=== PATIENT | male | born 1935 | race Caucasian/White ===

== ENCOUNTER 2019-10-06 12:15 | Outpatient (CLI) | payer BC, SELFPAY | END 2019-10-06 12:16 | disposition home or self-care (01) | LOC: CHSIMG 12:20 | PROVIDERS: PCP Family Medicine; Visit Provider Specialist | DX: I49.9 Cardiac arrhythmia, unspecified (principal); G45.9 Transient cerebral ischemic attack, unspecified | CPT/HCPCS: 93270; 93306; 96374; 96375 ==

== ENCOUNTER 2023-12-24 11:17 | Inpatient (IN) | payer MEDICARE, OTHER, SELFPAY ==
[2023-12-24] VITALS (19 sets, daily range): BP systolic 145–173; BP diastolic 60–93; PULSE 66–83; RESP 13–26; TEMP 36–36.7; O2SAT 94–100; BMI 29.3
--- NOTE | ~2023-12-24 | XR_ITS ---
XR chest 2V 12/24/2023 12:16 Indication: Redness of breath with exertion Procedure: 2 view chest Comparison: No prior studies for comparison. Findings: There are large right and small left pleural effusions. Bibasilar airspace disease may repr esent compressive atelectasis or pneumonia. No pneumothorax. No edema. Probable cardiomegaly. Impression: 1: Large right and small left pleural effusions. 2: Bibasilar airspace disease, most likely compressive atelectasis. Pneumonia less favored. Reviewed, dictated and finalized at location B. Impression: 1: Large right and small left pleural effusions. 2: Bibasilar airspace disease, most likely compressive atelectasis. Pneumonia l ess favored.
--- NOTE | ~2023-12-24 | XR_ITS ---
[id number] 12/26/2023 11:50 Indication: Postthoracentesis Procedure: AP portable chest Comparison: 12/24/2023 Findings: There are bilateral pleural effusions, right greater than left. No pneumothorax identified post procedure. Bibasilar airspace disease may represent atelectasis or pneumonia. Cardiomegaly. No a cute osseous abnormality. Impression: 1: Bibasilar airspace disease, atelectasis versus pneumonia. 2: Bilateral pleural effusions, right greater than left. No pneumothorax identified. Reviewed, dictated and finalized at location B. Impression: 1: Bibasilar airspace disease, atelectasis versus pneumonia. 2: Bilateral pleural effusions, right greater than left. No pneumothorax ident ified.
--- NOTE | ~2023-12-24 | CT_ITS ---
EXAMINATION: CT diagnostic chest wo con DATE: 12/24/2023 13:14 INDICATION: Pleural effusions. TECHNIQUE: Computed tomography (CT) of the chest was performed without intravenous contrast. The dose -length product was 435.94 mGy-cm. Automated exposure control and iterative reconstruction technique were employed. COMPARISON: None FINDINGS: Large right and small left pleural effusions. There is atherosclerosis of the aorta. There is atherosclerosis and coronary arteries. Cardiomegaly. Bibasilar dependent atelectasis. Status post cholecystectomy with pneumobilia consistent with sphincterotomy. There is a T12 burst fracture, likel y chronic. There is severe thoracic and lumbar spondylosis. There are mild wedge compression deformit ies of the lower thoracic spine, likely chronic. IMPRESSION: 1. Bilateral pleural effusions, right greater than left with underlying compressive atelectasis. 2: Cardiomegaly. Reviewed, dictated and finalized at location B. IMPRESSION: 1. Bilateral pleural effusions, right greater than left with underlying david sive atelectasis. 2: Cardiomegaly.
--- NOTE | ~2023-12-24 | US_ITS ---
EXAMINATION: US thoracentesis DATE: 12/26/2023 11:54 INDICATION: pleural effusion TECHNIQUE: The procedure and its risks, benefits, and alternatives were discussed with the patient. P otential risks discussed included bleeding, infection, and pneumothorax. The patient understood the r isks and agreed to proceed. The skin was prepped and draped in sterile fashion. 1% lidocaine was used for local anesthesia. Under ultrasound guidance, a 5 Fr catheter with trochar was advanced into the right pleural effusion. Fluid was aspirated. The catheter was removed, and a dressing was applied. Th ere were no immediate complications. FINDINGS: Ultrasound images demonstrate a right pleural effusion and the catheter within the fluid. IMPRESSION: 1. Successful ultrasound-guided thoracentesis yielding 1000 mL of clear, yellow fluid. Reviewed, dictated and finalized at location A. IMPRESSION: 1. Successful ultrasound-guided thoracentesis yielding 1000 mL of clear, yello w fluid.
--- NOTE | 2023-12-24 11:44 | ECG_ITS ---
SEE SCANNED COPY FOR CONFIRMED REPORT MTDD
[2023-12-24 11:59] LABS: Basophils Percent Auto 0.3 % (0.2-1.2); Eosinophils Absolute Auto 0.1 K/mm3 (0-0.3); Eosinophils Percent Auto 1.5 % (0-4.4); Hematocrit 42.4 % (42.0-52.0); Hemoglobin 14.3 g/dL (14.0-18.0); Immature Granulocyte Absolute 0.01 K/mm3 (0.00-0.031); Immature Granulocyte Percent A 0.2 % (0-0.5); Lymphocytes Absolute Auto 0.55 K/mm3 (0.9-3.2); Lymphocytes Percent Auto 8.9 % (18.3-44.2); Mean Corpuscular HGB Conc 33.7 g/dl (32-36); Mean Corpuscular Hemoglobin 33.6 pg (26-34); Mean Corpuscular Volume 99.5 fl (80-100); Mean Platelet Volume 9.6 fl (7.4-10.4); Monocytes Absolute Auto 0.7 K/mm3 (0.1-0.6); Monocytes Percent Auto 11.1 % (2.6-8.5); Neutrophils Absolute Auto 4.8 K/mm3 (1.3-6.7); Platelet Count Result 152 k/mm3 (150-375); Red Blood Count 4.26 M/mm3 (4.6-6.20); Red Cell Distribution Width 13.8 % (11.5-14.5); White Blood Count 6.2 K/mm3 (4.5-10.0)
[2023-12-24 12:15] LABS: Alanine Aminotransferase 39 U/L (6-50); Albumin Level 3.8 g/dL (3.5-5.1); Alkaline Phosphatase 91 U/L (38-126); Anion Gap 6 mmol/L (4-12); Aspartate Amino Transferase 38 U/L (17-59); Blood Urea Nitrogen 70 mg/dL (9-20); Carbon Dioxide 27 mmol/L (22-30); Chloride 103 mmol/L (98-107); Estimated CRCL calculation 16 ml/min; Estimated Glomerular Filt Rate 20; Glucose 101 mg/dL (65-110); Potassium 4.2 mmol/L (3.4-5.0); Sodium 136 mmol/L (137-145)
[2023-12-24 12:16] LABS: INR 2.2; Prothrombin Time 26.4 Seconds (11.1-14.7)
[2023-12-24 12:17] LABS: Partial Thromboplastin Time 40.9 Seconds (22.3-36.8)
[2023-12-24 12:28] LABS: NT Pro B Type Natriuretic Pept 3780 pg/mL (19.9-100); Troponin I 0.068 ng/mL (0.000-0.034)
[2023-12-24 12:37] LABS: Influenza A QL RT-PCR Negative (Negative); Influenza B QL RT-PCR Negative (Negative); RSV RNA, RT-PCR Negative (Negative); SARS-CoV-2 RNA PCR Negative (Negative)
--- NOTE | 2023-12-24 12:47 | ED.SOB ---
HPI - SOB/Dyspnea General Chief Complaint: Shortness of Breath/Dyspnea Stated Complaint: shortnes of breath Time Seen by Provider: 12/24/23 11:57 History of Present Illness HPI Narrative: 88-year-old male present to the emergency department for evaluation of worsening exertional shortness of breath over the course of the last few weeks. Patient does have history of CHF but denies any recent water weight gain. Patient denies any associated chest pain with this. Patient states that he is unable to walk as long distances he used to be able to without worsening shortness of breath. Patient has no prior history of atrial fibrillation per patient or family but patient is on Xarelto. patient denies any prior history of [place]. Related Data Home Medications Medication Instructions Recorded Confirmed amlodipine 5 mg tablet 5 mg PO DAILY 10/16/22 12/24/23 rivaroxaban 20 mg tablet (Xarelto) 20 mg PO DAILY 10/16/22 12/24/23 temazepam 7.5 mg capsule 7.5 mg PO QHS 10/16/22 12/24/23 vitamin E (dl, acetate) 180 mg 180 mg PO DAILY 10/16/22 12/24/23 (400 unit) capsule timolol 0.5 % eye drops 1 drp EACH EYE Q12H 06/12/23 12/24/23 clonidine HCl 0.1 mg tablet 0.2 mg PO BID 10/09/23 12/24/23 ascorbic acid (vitamin C) 500 mg 500 mg PO DAILY 12/24/23 12/24/23 tablet (Vitamin C) calcium 600 mg capsule 600 mg PO DAILY 12/24/23 12/24/23 cholecalciferol (vitamin D3) 125 125 mcg PO DAILY 12/24/23 12/24/23 mcg (5,000 unit) tablet (Vitamin D3) travoprost 0.004 % eye drops 1 drp EACH EYE HS 12/24/23 12/24/23 Allergies Allergy/AdvReac Type Severity Reaction Status Date / Time No Known Allergies Allergy Verified 12/24/23 11:18 Review of Systems Review of Systems: All systems reviewed & are unremarkable except as noted in HPI and below PMFSH Past Medical History Medical History Chronic anticoagulation Chronic kidney disease, stage 4 (severe) Hyperlipidemia Hypertension Paroxysmal atrial fibrillation Patent foramen ovale Transient ischemic attack (2019) Echocardiogram showed evidence of a small patent foramen ovale. Surgical History Surgical History History of cholecystectomy Family History Family History Mother Brain tumor Father Lung cancer Social History Social History (Updated 12/24/23 @ 21:43 by Terri Lobato PA-C) Social History: Healthcare power of contract attorney: Avtar Finn. Code status: Full code. Smoking status: Never smoker Alcohol intake: never Substance use: never Do You Feel Safe in your Home?: Yes Lack of Transportation: YES Lack of Food: Never True Current Housing: I Do Not Have Housing Concerned About Future Housing: No Difficulty Paying Gas/Electric Bills: No Difficulty Paying for Meds: No Currently Unemployed: No Education: Master's Degree or Higher Difficulty w/ Childcare or Family Care: No Additional living arrangements comments: Lives in [place]. 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 Spiritual care concerns: No Exam Narrative: APPEARANCE: Well appearing, no pain, no distress, well-nourished. HEAD: normocephalic, atraumatic. EYES: PERRLA/EOMI, conjunctivae clear. NOSE: Normal no drainage EARS:TMS clear with good light reflex. THROAT: Pharynx clear, no exudate. NECK: Supple. No adenopathy, no masses. RESPIRATORY: Airway patent, respirations nonlabored. Clear to auscultation bilaterally, no rales, rhonchi, wheezing. CARDIOVASCULAR: Regular rate and rhythm without murmurs rubs or gallops. ABDOMINAL: Soft, nontender, nondistended, normal bowel sounds MUSCULOSKELETAL: lower extremity pitting NEURO: Alert. Cranial nerves II through XII intact. grossly intact SKIN: Warm, dry. Normal Color Course Vital Signs Vital signs: Vital Signs
[2023-12-24 13:04] LABS: Magnesium 2.1 mg/dL (1.6-2.3)
[2023-12-24] MEDS: FUROSEMIDE INJ 40 MG/4 ML VIAL IV PUSH ×2 (13:32→20:13)
[2023-12-24 14:13] LABS: Free T4 Free Thyroxine Reflex 1.58 ng/dL (0.78-2.19)
[2023-12-24 14:56] LABS: Total Triiodothyronine (T3) 1.03 NG/ML (0.97-1.69)
--- NOTE | 2023-12-24 15:07 | PM.IMHP ---
H&P: HPI History of Present Illness Date/Time: 12/24/23 16:00 Chief Complaint: Shortness of breath. 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 The patient provides the following history. Over the course of the last 3 weeks he has noticed an increase in his chronic lower extremity edema and progressive dyspnea on lesser and lesser exertion. He is now having mild shortness of breath with conversation. He states compliance with his medications and has not had any change in dosages. He has not noticed any with weight gain. There has been no change in urine output that he can appreciate. He also denies syncope, near syncope, pleuritic pain, chest pain, sensations of racing heart, nausea, vomiting, sweats, orthopnea, paroxysmal nocturnal dyspnea, and calf pain. In the ED: He was afebrile on arrival. Blood pressures have been running between the 140s to 170s systolic. Labs were significant for an INR of 2.2, sodium 136, BUN 70, creatinine 3.00, troponin 0.06 8, proBNP 3780. Chest CT showed bilateral pleural effusions, right greater than left, with underlying compressive atelectasis and cardiomegaly. He was given 40 mg IV furosemide and is being admitted in this setting for further treatment and evaluation. Review of Systems Review of Systems: 12 systems were reviewed and are negative except for as per HPI. [facility] Past Medical History Medical History Chronic anticoagulation Chronic kidney disease, stage 4 (severe) Hyperlipidemia Hypertension Paroxysmal atrial fibrillation Patent foramen ovale Transient ischemic attack (2019) Echocardiogram showed evidence of a small patent foramen ovale. Surgical History Surgical History History of cholecystectomy Family History Family History Mother Brain tumor Father Lung cancer Social History Social History (Updated 12/24/23 @ 21:43 by Terri Lobato PA-C) Social History: Healthcare power of admitted attorneys: Avtar Finn. Code status: Full code. Smoking status: Never smoker Alcohol intake: never Substance use: never Do You Feel Safe in your Home?: Yes Lack of Transportation: YES Lack of Food: Never True Current Housing: I Do Not Have Housing Concerned About Future Housing: No Difficulty Paying Gas/Electric Bills: No Difficulty Paying for Meds: No Currently Unemployed: No Education: Master's Degree or Higher Difficulty w/ Childcare or Family Care: No Additional living arrangements comments: Lives in [place]. 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 Spiritual care concerns: No Meds Home Medications and Allergies Home Medications Medication Instructions Recorded Confirmed Type amlodipine 5 mg tablet 5 mg PO DAILY 10/16/22 12/24/23 History rivaroxaban 20 mg tablet (Xarelto) 20 mg PO DAILY 10/16/22 12/24/23 History temazepam 7.5 mg capsule 7.5 mg PO QHS 10/16/22 12/24/23 History vitamin E (dl, acetate) 180 mg 180 mg PO DAILY 10/16/22 12/24/23 History (400 unit) capsule timolol 0.5 % eye drops 1 drp EACH EYE Q12H 06/12/23 12/24/23 History clonidine HCl 0.1 mg tablet 0.2 mg PO BID 10/09/23 12/24/23 History furosemide 40 mg tablet 40 mg PO QAM #90 tabs 10/09/23 12/24/23 Rx pravastatin 20 mg tablet 20 mg PO DAILY #90 tabs 11/16/23 12/24/23 Rx ascorbic acid (vitamin C) 500 mg 500 mg PO DAILY 12/24/23 12/24/23 History tablet (Vitamin C) calcium 600 mg capsule 600 mg PO DAILY 12/24/23 12/24/23 History cholecalciferol (vitamin D3) 125 125 mcg PO DAILY
[2023-12-24 17:41] LABS: Troponin I 0.064 ng/mL (0.000-0.034)
[2023-12-24 21:01] LABS: Troponin I 0.065 ng/mL (0.000-0.034)
[2023-12-24] MEDS: LATANOPROST 0.005% OP SOLN 2.5 ML BTL 1 DROP EACH EYE (22:07)
[2023-12-24] MEDS: TEMAZEPAM (*CRX) 7.5 MG CAPSULE PO (22:07)
[2023-12-24] MEDS: TIMOLOL MALEATE 0.5% OP SOLN 5 ML BOTTLE 1 DROP EACH EYE (22:07)
[2023-12-25] VITALS (13 sets, daily range): BP systolic 151–165; BP diastolic 65–78; PULSE 60–91; RESP 16–30; TEMP 36.5–36.7; O2SAT 93–96
[2023-12-25 04:27] LABS: Hematocrit 41.9 % (42.0-52.0); Mean Corpuscular HGB Conc 33.4 g/dl (32-36); Mean Corpuscular Hemoglobin 33.4 pg (26-34); Platelet Count Result 153 k/mm3 (150-375); Red Blood Count 4.19 M/mm3 (4.6-6.20); Red Cell Distribution Width 13.5 % (11.5-14.5); White Blood Count 5.1 K/mm3 (4.5-10.0)
[2023-12-25 04:45] LABS: Anion Gap 9 mmol/L (4-12); Blood Urea Nitrogen 67 mg/dL (9-20); Carbon Dioxide 26 mmol/L (22-30); Chloride 104 mmol/L (98-107); Estimated CRCL calculation 16 ml/min; Estimated Glomerular Filt Rate 20; Glucose 102 mg/dL (65-110); Potassium 3.5 mmol/L (3.4-5.0); Sodium 139 mmol/L (137-145)
[2023-12-25] MEDS: CHOLECALCIFEROL 1,000 UNITS TABLET 5000 UNITS PO (08:47)
[2023-12-25] MEDS: ASCORBIC ACID 500 MG TABLET PO (08:48)
[2023-12-25] MEDS: cloNIDine HCL 0.2 MG TABLET PO ×2 (08:50→20:12)
[2023-12-25] MEDS: CALCIUM CARBONATE (OSCAL) 500 MG TABLET PO (08:50)
[2023-12-25] MEDS: PRAVASTATIN SODIUM 20 MG TABLET PO (08:50)
[2023-12-25] MEDS: TIMOLOL MALEATE 0.5% OP SOLN 5 ML BOTTLE 1 DROP EACH EYE (08:51)
[2023-12-25] MEDS: FUROSEMIDE INJ 40 MG/4 ML VIAL IV PUSH ×2 (08:51→17:28)
[2023-12-25] MEDS: amLODIPine BESYLATE 5 MG TABLET PO (08:51)
[2023-12-25] MEDS: PERFLUTREN LIPID MICROSPHERES 1.5 ML VIAL DILUTED TO 10 ML TOTAL VOLUME IV PUSH (09:45)
--- NOTE | 2023-12-25 09:51 | P.PNIM_ITS ---
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 * monitor renal function during diuresis * previous echocardiogram 2019 * echocardiogram pending * EKG AFIB * chest x-ray large right pleural effusion smaller left/cardiomegaly * Optimize Rene inhibitors, beta-blockers, ARNI * Daily weight. * fluid restriction * Optimize blood pressure less than 130/80. * Fall risk assessment. Bilateral pleural effusion * Right larger than the left * Holding Xarelto * Diuresis with IV Lasix * Thoracentesis pending Elevated troponin * NO CP/SOB likely secondary to ischemic demand * serial troponins x3 q.6 hours trending flat * EKG without ischemic changes q.6 hours * cardiology consulted * EKG AFIB controlled rate Acute on chronic renal failure * Stage IV * Avoid nephrotoxic drugs. * Monitor antihypertensive drug therapy. * Avoid NSAIDs. * Routine CMP monitoring GFR. * Monitor electrolytes especially potassium. * Antibiotic doses depending on creatinine clearance. * Pharmacy does medications. HX AFIB: Holding Xarelto for Thoracentesis HX HTN: Resumed home medications/ BP per unit protocol Code status: Full code per patient DVT prophylaxis: Xarelto Stress ulcer prophylaxis: Protonix 40 daily PT/OT notes: Pending Disposition: Patient admitted the with acute on chronic CHF and bilateral pleural effusion will hold patient's Xarelto for scheduled thoracentesis. PT OT pending. Will continue with aggressive IV diuresis home cardiology and Neurology consult for further recommendations. 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 The patient provides the following history. Over the course of the last 3 weeks he has noticed an increase in his chronic lower extremity edema and progressive dyspnea on lesser and lesser exertion. He is now having mild shortness of breath with conversation. He states compliance with his medications and has not had any change in dosages. He has not noticed any with weight gain. There has been no change in urine output that he can appreciate. He also denies syncope, near syn
--- NOTE | 2023-12-25 09:51 | PM.IMPN ---
Progress Note: A&P Assessment and Plan (1) Pleural effusion: Code(s): J90 - Pleural effusion, not elsewhere classified Status: Acute (2) Elevated troponin: Code(s): R79.89 - Other specified abnormal findings of blood chemistry Status: Acute (3) CHF exacerbation: Code(s): I50.9 - Heart failure, unspecified Status: Acute (4) Hyperlipidemia: Code(s): E78.5 - Hyperlipidemia, unspecified Status: Acute (5) Chronic anticoagulation: Code(s): Z79.01 - longterm (current) use of anticoagulants Status: Acute (6) Paroxysmal atrial fibrillation: Code(s): I48.0 - Paroxysmal atrial fibrillation Status: Acute (7) Hypertension: Code(s): I10 - Essential (primary) hypertension Status: Acute (8) Chronic kidney disease, stage 4 (severe): Code(s): N18.4 - Chronic kidney disease, stage 4 (severe) Status: Chronic Plan Acute on chronic diastolic heart failure BNP 3780 POA cardiology consulted IV Lasix b.i.d. monitor renal function during diuresis previous echocardiogram 2019 echocardiogram pending EKG AFIB chest x-ray large right pleural effusion smaller left/cardiomegaly Optimize Rene inhibitors, beta-blockers, ARNI Daily weight. fluid restriction Optimize blood pressure less than 130/80. Fall risk assessment. Bilateral pleural effusion Right larger than the left Holding Xarelto Diuresis with IV Lasix Thoracentesis pending Elevated troponin NO CP/SOB likely secondary to ischemic demand serial troponins x3 q.6 hours trending flat EKG without ischemic changes q.6 hours cardiology consulted EKG AFIB controlled rate Acute on chronic renal failure Stage IV Avoid nephrotoxic drugs. Monitor antihypertensive drug therapy. Avoid NSAIDs. Routine CMP monitoring GFR. Monitor electrolytes especially potassium. Antibiotic doses depending on creatinine clearance. Pharmacy does medications. HX AFIB: Holding Xarelto for Thoracentesis HX HTN: Resumed home medications/ BP per unit protocol Code status: Full code per patient DVT prophylaxis: Xarelto Stress ulcer prophylaxis: Protonix 40 daily PT/OT notes: Pending Disposition: Patient admitted the with acute on chronic CHF and bilateral pleural effusion will hold patient's Xarelto for scheduled thoracentesis. PT OT pending. Will continue with aggressive IV diuresis home cardiology and Neurology consult for further recommendations. 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 The patient provides the following history. Over the course of the last 3 weeks he has noticed an increase in his chronic lower extremity edema and progressive dyspnea on lesser and lesser exertion. He is now having mild shortness of breath with conversation. He states compliance with his medications and has not had any change in dosages. He has not noticed any with weight gain. There has been no change in urine output that he can appreciate. He also denies syncope, near syncope, pleuritic pain, chest pain, sensations of racing heart, nausea, vomiting, sweats, orthopnea, paroxysmal nocturnal dyspnea, and calf pain. In the ED: He was afebrile on arrival. Blood pressures have been running between the 140s to 170s systolic. Labs were significant for an INR of 2.2, sodium 136, BUN 70, creatinine 3.00, troponin 0.06 8, proBNP 3780. Chest CT showed bilateral pleural effusions, right greater than left, with underlying compressive atelectasis and
--- NOTE | 2023-12-25 10:17 | PM.CNNEP ---
Assessment and Plan Assessment and plan (1) Chronic kidney disease, stage 4 (severe): Code(s): N18.4 - Chronic kidney disease, stage 4 (severe) Status: Chronic Assessment and Plan: baseline creatinine runs around 2.8 - 3.3mg/dl for the last year secondary to HTN, vascular disease, and age-related change his GFR has been as low as 12cc/min in the past which prompted referral for dialysis access placement has AVF in place for dialysis if/when needed responsive to IV diuretic therapy as noted by I/Os follow trend of repeat labs and UOP (2) Acute on chronic diastolic heart failure: Code(s): I50.33 - Acute on chronic diastolic (congestive) heart failure Status: Acute Assessment and Plan: as evidence by symptoms/presentation reasonable response to IV diuretics with relative stability in renal function follow I/Os, daily weights, and respiratory status Cardiology following (3) Bilateral pleural effusion: Code(s): J90 - Pleural effusion, not elsewhere classified Status: Acute Assessment and Plan: right larger than the left holding anticoagulation ongoing diuresis plan for thoracentesis (4) Paroxysmal atrial fibrillation: Code(s): I48.0 - Paroxysmal atrial fibrillation Status: Acute Assessment and Plan: rate controlled on anticoagulation - holding currently for thoracentesis procedure (5) Hypertension: Code(s): I10 - Essential (primary) hypertension Status: Chronic Assessment and Plan: reasonable control may improve further with diuresis follow trend of hemodynamics I will continue to follow the patient with you while he remains hospitalized and make further recommendations as deemed necessary. Thank you for allowing me to participate in the care of this patient. History of Present Illness Reason for Consult Consult date: 12/25/23 Reason for consult: chronic renal failure Chief Complaint Chief complaint: Exertional Shortness of Breath/CHF Bilateral Pleur History of Present Illness Narrative: The patient is an 88-year-old male with a past medical history as outlined below who presented to [facility] Emergency Room for complaints of shortness of breath. Over the past 3 weeks, the patient has noticed an increase in his lower extremity edema and progressive shortness of breath on lesser in lesser exertion. It is worsened to the point where now he has mild shortness of breath just with conversation. He reports compliance with his medications including his diuretics and he has not noticed any fluctuations in his weight. To his knowledge, his urine output appears to be stable and he has had no other symptoms with regard to syncope, lightheadedness, chest pain, palpitations, nausea, vomiting, diaphoresis, or diarrhea. Because of the ongoing nature of the symptoms, he presented to the ER for further assessment. Workup and evaluation emergency room demonstrated the patient to be hemodynamically stable and in no acute distress. Routine blood tests were done which demonstrated his known history of chronic kidney disease with an elevated BUN creatinine but no critical electrolyte abnormalities were noted. His INR was therapeutic at 2.2 and his troponins were only slightly elevated. His proBNP was elevated at 37 80. Subsequent imaging studies including a chest CT demonstrated bilateral pleural effusions with the right greater than left with underlying compressive atelectasis and cardiomegaly. It was felt that his symptoms were manifestation of a CHF exacerbation so he was given IV diuretic therapy and subsequently admitted to the hospital for further evaluation and therapy. Since his admission, he has had fairly reasonable urine output in response to IV diuretic therapy. Given the significant size of his pleural effusions, his anticoagulation has been placed on hold an effort to try and schedule a thoracent
--- NOTE | 2023-12-25 11:02 | PM.CNCAR ---
Assessment and Plan Assessment and plan (1) Paroxysmal atrial fibrillation: Code(s): I48.0 - Paroxysmal atrial fibrillation Status: Acute (2) Pleural effusion: Code(s): J90 - Pleural effusion, not elsewhere classified Status: Acute (3) Elevated troponin: Code(s): R79.89 - Other specified abnormal findings of blood chemistry Status: Acute Plan This is an 88-year-old man who has a history of a patent foramen ovale and paroxysmal atrial fib which at this time appears to be persistent and admits to the hospital with shortness of breath he has a large right pleural effusion and a small to moderate-sized left pleural effusion. It seems that this is likely impairing his mechanics of breathing and resulting in his chief complaint. He has modestly elevated troponin levels which are consistent with his chronic renal failure/not indicative of acute coronary syndrome. At this time he does not need any medication for rate control as his heart rate is in the 70-80 indicating an element of senile AV node dysfunction is also present. I expect that his right pleural effusion is going to have to be tapped for treatment of his dyspnea. His Xarelto should be stopped in anticipation of that. I will review his echocardiogram after it is done and will need to determine if he is a candidate for attempting to restore sinus rhythm at some point or more likely just accepting chronic atrial fibrillation since he is otherwise asymptomatic and unaware of this arrhythmia. Will follow with you while he is in the hospital Connor Starkey MD [facility] History of Present Illness History of Present Illness Consult date/time: 12/25/23 11:02 Reason For Visit: Exertional Shortness of Breath/CHF Bilateral Pleur Narrative: This is a 88-year-old man I am seeing at the request of the hospitalist today apparently because of shortness of breath, pleural effusions and atrial fibrillation as well as elevated troponin levels. Patient is unknown to me prior to this consultation he states that he has been followed for a number of years by a audio experience expert up in the [place] area because he has a patent foramen ovale. This was apparently identified when he was about 79 years old when he had a TIA. Because of this he has been anticoagulated with Xarelto. He came to this hospital emergency room yesterday reporting symptoms of increasing shortness of breath and some lower extremity edema that became more problematic over the last 2-3 weeks. He is not having any symptoms of chest pain pressure or heaviness he was evaluated in the emergency room and was found to have atrial fibrillation with a controlled ventricular response and significant bilateral pleural effusions with more pleural fluid on the right side than on the left. He is known to have chronic kidney disease and follows with Dr. Sands regarding that. For reasons that are not detailed in the chart troponin levels were sampled in the emergency room they are slightly elevated out of normal range but they are all flat there is no pattern that indicates an acute coronary event. His electrocardiogram shows atrial fibrillation with a controlled ventricular response. The patient states that he has no knowledge of her history of atrial fibrillation in the past however there is a event monitor report from about 5 years ago that demonstrates paroxysmal atrial fibrillation apparently from his previous audio experience expert. 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 He tells me in the course of this interview today that his previous audio experience expert up in [place] has retired he was informed of this by his office recently. His laboratory data demonstrates a BUN of 70 and a creatinine of 3 with a EGFR of 20. Review of Systems Constitutional: Constitutional: Reports lethargy Eyes: Eyes: Reports no additional eye complaints ENT: Reports system reviewed
--- NOTE | 2023-12-25 15:17 | ECHO_ITS ---
Patient Info Name: Roger Jacome Age: 88 years : 1935 Gender: Male Ht: 70 in Wt: 190 lbs BSA: 2.08 m2 HR: 64 bpm BP: 160 / 65 mmHg Heart Rhythm: Atrial Fibrillation Technical Quality: Good Exam Date: 12/25/2023 9:49 AM Exam Location: Echo Lab Patient Status: Inpatient Admit Date: 12/25/2023 Staff Ordering Physician: Terri Lobato PA-C Processing Lead: Cheyenne Nelson RDCS Attending Provider: Herrera Adam MD Referring Physician: Luis Alfredo MCCRAY; Exam Type: CA echo dop color flow w con Study Info Indications - CHF, a fib, htn Complete two-dimensional, color flow and Doppler transthoracic echocardiogram is performed with contrast to opacify the left ventricle and to improve the deliniation of the left ventricle endocardial borders. Summary 1. Mild left ventricular enlargement with mild global systolic dysfunction. 2. Moderate biatrial dilation. 3. Sclerotic but not significantly stenotic aortic valve. 4. Moderate mitral and tricuspid regurgitation. 5. Mild aortic and pulmonic regurgitation. 6. Atrial fibrillation. 7. TR velocities indicate at least moderate pulmonary hypertension. Left Ventricle Left ventricular chamber dimension is mildly enlarged. Left ventricular systolic function is mildly reduced, estimated at 45-50%. The left ventricular diastolic function is indeterminate. Right Ventricle Right ventricular chamber dimension is normal. Left Atria Left atrial chamber dimension is moderately enlarged. Right Atria Right atrial chamber dimension is moderately enlarged. Aortic Valve The aortic valve is trileaflet. There is moderate aortic valve sclerosis. There is mild aortic valve stenosis with a peak velocity of 138.37 cm/s, mean gradient of 4 mmHg, and aortic valve area of 2.46 cm2. There is trace aortic valve regurgitation. Pulmonic Valve The pulmonic valve is normal. There is mild pulmonic regurgitation. Mitral Valve The mitral valve has normal leaflets. There is mild to moderate mitral valve regurgitation. The mitral valve annulus is mildly calcified. Tricuspid Valve The tricuspid valve leaflets are normal. There is moderate tricuspid valve regurgitation. Moderate pulmonary hypertension, estimated pulmonary arterial systolic pressure is 58 mmHg. Pericardium/Pleural The pericardium appears normal. Aorta The aortic root size at the sinus of Valsalva is normal. Left Ventricular Outflow Tract Name Value Normal LVOT 2D LVOT Diameter 2.10 cm LVOT Doppler LVOT Peak Gradient 5 mmHg LVOT Mean Gradient 3 mmHg LVOT VTI 20.15 cm LVOT VTI/AV VTI Ratio 0.71 LVOT Stroke Volume 69.70 ml LVOT CO 4.65 l/min LVOT CI 2.24 L/min/m2 Pulmonic Valve Name Value Normal RVOT Doppler RVOT Peak Gradient 1 mm
[2023-12-25] MEDS: VITAMIN E 400 UNIT CAPSULE PO (16:59)
[2023-12-25] MEDS: LATANOPROST 0.005% OP SOLN 2.5 ML BTL 1 DROP EACH EYE (20:08)
[2023-12-25] MEDS: TEMAZEPAM (*CRX) 7.5 MG CAPSULE PO (20:13)
[2023-12-26] VITALS (16 sets, daily range): BP systolic 124–159; BP diastolic 54–74; PULSE 55–83; RESP 16–24; TEMP 36.1–36.7; O2SAT 94–98
[2023-12-26 04:16] LABS: Hematocrit 39.4 % (42.0-52.0); Hemoglobin 13.4 g/dL (14.0-18.0); Mean Corpuscular Hemoglobin 33.7 pg (26-34); Platelet Count Result 135 k/mm3 (150-375); Red Blood Count 3.98 M/mm3 (4.6-6.20); Red Cell Distribution Width 13.5 % (11.5-14.5); White Blood Count 5.7 K/mm3 (4.5-10.0)
[2023-12-26 04:26] LABS: INR 1.3; Prothrombin Time 17.1 Seconds (11.1-14.7)
[2023-12-26 04:30] LABS: Alanine Aminotransferase 27 U/L (6-50); Albumin Level 3.1 g/dL (3.5-5.1); Alkaline Phosphatase 83 U/L (38-126); Anion Gap 7 mmol/L (4-12); Aspartate Amino Transferase 24 U/L (17-59); Bilirubin,Total 2.1 mg/dL (0.2-1.3); Blood Urea Nitrogen 62 mg/dL (9-20); Calcium 8.7 mg/dL (8.4-10.2); Carbon Dioxide 28 mmol/L (22-30); Chloride 102 mmol/L (98-107); Estimated CRCL calculation 15 ml/min; Estimated Glomerular Filt Rate 18; Glucose 114 mg/dL (65-110); Potassium 3.3 mmol/L (3.4-5.0); Sodium 137 mmol/L (137-145)
--- NOTE | 2023-12-26 08:47 | P.PNIM_ITS ---
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 * monitor renal function during diuresis * previous echocardiogram 2019 * echocardiogram: systolic dysfunction with mild biatrial dilation, LVEF 45-50%, moderate MR, moderate TR, and mild AR and ID. * EKG AFIB * chest x-ray large right pleural effusion smaller left/cardiomegaly * Optimize Rene inhibitors, beta-blockers, ARNI * Daily weight. * fluid restriction * Optimize blood pressure less than 130/80. * Fall risk assessment. Bilateral pleural effusion * Right larger than the left * Holding Xarelto * Diuresis with IV Lasix * Thoracentesis pending Elevated troponin * NO CP/SOB likely secondary to ischemic demand * serial troponins x3 q.6 hours trending flat * EKG without ischemic changes q.6 hours * cardiology consulted * EKG AFIB controlled rate Acute on chronic renal failure * Stage IV * Cr bumped may need to switch Lasix to daily * AVF in place * Avoid nephrotoxic drugs. * Monitor antihypertensive drug therapy. * Avoid NSAIDs. * Routine CMP monitoring GFR. * Monitor electrolytes especially potassium. * Antibiotic doses depending on creatinine clearance. * Pharmacy does medications. HX AFIB: Holding Xarelto for Thoracentesis HX HTN: Resumed home medications/ BP per unit protocol Code status: Full code per patient DVT prophylaxis: Xarelto Stress ulcer prophylaxis: Protonix 40 daily PT/OT notes: Pending Disposition: Patient admitted the with acute on chronic CHF and bilateral pleural effusion will hold patient's Xarelto for scheduled thoracentesis. PT OT pending. Will continue with aggressive IV diuresis consulted cardiology and Neurology consult for further recommendations. 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 The patient provides the following history. Over the course of the last 3 weeks he has noticed an increase in his chronic lower extremity edema and progressive d
--- NOTE | 2023-12-26 08:47 | PM.IMPN ---
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 monitor renal function during diuresis previous echocardiogram 2019 echocardiogram: systolic dysfunction with mild biatrial dilation, LVEF 45-50%, moderate MR, moderate TR, and mild AR and AZ. EKG AFIB chest x-ray large right pleural effusion smaller left/cardiomegaly Optimize Rene inhibitors, beta-blockers, ARNI Daily weight. fluid restriction Optimize blood pressure less than 130/80. Fall risk assessment. Bilateral pleural effusion Right larger than the left Holding Xarelto Diuresis with IV Lasix Thoracentesis pending Elevated troponin NO CP/SOB likely secondary to ischemic demand serial troponins x3 q.6 hours trending flat EKG without ischemic changes q.6 hours cardiology consulted EKG AFIB controlled rate Acute on chronic renal failure Stage IV Cr bumped may need to switch Lasix to daily AVF in place Avoid nephrotoxic drugs. Monitor antihypertensive drug therapy. Avoid NSAIDs. Routine CMP monitoring GFR. Monitor electrolytes especially potassium. Antibiotic doses depending on creatinine clearance. Pharmacy does medications. HX AFIB: Holding Xarelto for Thoracentesis HX HTN: Resumed home medications/ BP per unit protocol Code status: Full code per patient DVT prophylaxis: Xarelto Stress ulcer prophylaxis: Protonix 40 daily PT/OT notes: Pending Disposition: Patient admitted the with acute on chronic CHF and bilateral pleural effusion will hold patient's Xarelto for scheduled thoracentesis. PT OT pending. Will continue with aggressive IV diuresis consulted cardiology and Neurology consult for further recommendations. 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 The patient provides the following history. Over the course of the last 3 weeks he has noticed an increase in his chronic lower extremity edema and progressive dyspnea on lesser and lesser exertion. He is now having mild shortness of breath with conversation. He states compliance with his medications and has not had any change in dosages. He has not noticed any with weight gain. There has been no change in urine output that he can appreciate. He also denies syncope, near syncope, pleuritic pain, chest pain, sensations of racing heart, nausea, vomiting, sweats, orthopnea, paroxysmal nocturnal dyspnea, and calf pain. In the ED: He was afebril
[2023-12-26] MEDS: TIMOLOL MALEATE 0.5% OP SOLN 5 ML BOTTLE 1 DROP EACH EYE (09:30)
[2023-12-26] MEDS: FUROSEMIDE INJ 40 MG/4 ML VIAL IV PUSH (09:30)
[2023-12-26] MEDS: cloNIDine HCL 0.2 MG TABLET PO ×2 (09:31→20:20)
--- NOTE | 2023-12-26 09:40 | PM.PNCARD ---
Progress Note: A&P Assessment and Plan (1) Elevated troponin: Code(s): R79.89 - Other specified abnormal findings of blood chemistry Status: Acute (2) Paroxysmal atrial fibrillation: Code(s): I48.0 - Paroxysmal atrial fibrillation Status: Acute Plan 88-year-old man with what appears to be chronic atrial fibrillation. 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 Systemic anticoagulation with Xarelto should be continued. His troponin levels are not indicative of an ACS as I mentioned in my note. The only current cardiac recommendation is to resume Xarelto after his thoracentesis probably in the next couple of days. Who given the fact that his AFib is asymptomatic with good rate control and is not a new issue I do not anticipate attempting to cardiovert this elderly man. Await results of pleural fluid analysis and will follow with you while he is in the hospital. 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 He feels well this morning and is anticipating thoracentesis later this morning in radiology. Exam Const: General: comfortable and no acute distress Other: Pleasant elderly man no distress of any kind HENMT: Mouth: Yes moist mucous membranes Eyes: Sclera: sclerae normal Neck: Neck: supple Resp: Effort & Inspection: normal respiratory effort Other: Right hemithorax is dull in the lower 1/2 Cardio: Rate: regular rate Rhythm: abnormal rhythm irregularly irregular GI: GI Palp: Yes Soft to palpation Auscultation: normal bowel sounds Skin: General skin exam: normal color Neuro: Other: Alert and oriented x3 Extrem: Other: No peripheral edema Objective Data Vital Signs Vital Signs: Vital Signs - 24 hr 12/25/23 10:00 12/25/23 12:00 12/25/23 14:00 Temperature 36.5 C Pulse Rate 68 91 75 Respiratory Rate 28 H Blood Pressure 153/68 H Pulse Oximetry 93 12/25/23 12:20 12/25/23 16:00 12/25/23 16:00 Temperature 36.6 C Pulse Rate 84 78 86 Respiratory Rate 22 H Blood Pressure 151/78 H Pulse Oximetry 96 12/25/23 20:00 12/25/23 20:00 12/25/23 22:00 Temperature 36.6 C Pulse Rate 77 69 70 Respiratory Rate 16 Blood Pressure 159/69 H Pulse Oximetry 95 12/26/23 00:00 12/26/23 00:00 12/26/23 02:00 Temperature 36.2 C L Pulse Rate 55 L 57 L 67 Respiratory Rate 16 Blood Pressure 150/58 H Pulse Oximetry 95 12/26/23 04:00 12/26/23 04:51 12/26/23 06:00 Temperature 36.4 C Pulse Rate 70 77 73 Respiratory Rate 16 Blood Pressure 150/63 H Pulse Oximetry 97 12/26/23 07:27 Temperature 36.1 C L Pulse Rate 76 Respiratory Rate 24 H Blood Pressure 149/74 H Pulse Oximetry 96 Intake/Output Intake/Output: Intake & Output 12/23/23 12/24/23 12/25/23 12/26/23 23:59 23:59 23:59 23:59 Intake Total 240 1500 200 Output Total 950 3100 1050 Balance -710 1600 -850 Meds/Results Medications: Active Medications Generic Name Dose Route Start Last Admin Trade Name Taz PRN Reason Stop Dose Admin Amlodipine Besylate 5 mg 12/25/23 09:00 12/25/23 08:51 Amlodipine Besylate 5 Mg Tablet PO 5 mg DAILY ANNI Administration Ascorbic Acid 500 mg 12/25/23 09:00 12/25/23 08:48 Ascorbic Acid 500 Mg Tablet PO 500 mg DAILY ANNI Administration Calcium Carbonate 500 mg 12/25/23 09:00 12/25/23 08:50 Calcium Carbonate (Oscal) 500 Mg Tablet PO 01/24/24 08:59 500 mg DAILY ANNI Administration Clonidine HCl 0.2 mg 12/25/23 21:00 12/26/23
--- NOTE | 2023-12-26 13:01 | PM.PNNEP ---
Progress Note: A&P Assessment and Plan (1) Chronic kidney disease, stage 4 (severe): Code(s): N18.4 - Chronic kidney disease, stage 4 (severe) Status: Chronic Assessment and Plan: baseline creatinine runs around 2.8 - 3.3mg/dl for the last year secondary to HTN, vascular disease, and age-related change his GFR has been as low as 12cc/min in the past which prompted referral for dialysis access placement has AVF in place for dialysis if/when needed responsive to IV diuretic therapy as noted by I/Os follow trend of repeat labs and UOP (2) Acute on chronic diastolic heart failure: Code(s): I50.33 - Acute on chronic diastolic (congestive) heart failure Status: Acute Assessment and Plan: as evidence by symptoms/presentation reasonable response to IV diuretics with relative stability in renal function follow I/Os, daily weights, and respiratory status Cardiology following (3) Bilateral pleural effusion: Code(s): J90 - Pleural effusion, not elsewhere classified Status: Acute Assessment and Plan: right larger than the left holding anticoagulation ongoing diuresis s/p thoracentesis today (4) Paroxysmal atrial fibrillation: Code(s): I48.0 - Paroxysmal atrial fibrillation Status: Acute Assessment and Plan: rate controlled on anticoagulation - holding currently for thoracentesis procedure (5) Hypertension: Code(s): I10 - Essential (primary) hypertension Status: Chronic Assessment and Plan: reasonable control may improve further with diuresis follow trend of hemodynamics Will continue to follow. Subjective Date/time seen: 12/26/23 13:01 Interval history: Follow-up for chronic kidney disease. Renal function relatively stable with ongoing IV diuresis; s/p ultrasound guided right thoracentesis earlier this afternoon and tolerated this intervention reasonably well; almost 4L negative since admission; still seems to have some dyspnea when seen but no worse than admission. Exam Narrative: General: elderly but WD/WN male in NAD Heart: normal S1 and S2; no rub Lungs: clear anteriorly; decreased at bases R > L Abdomen: soft, nontender, nondistended, positive bowel sounds Extremities: no cyanosis or clubbing; no edema Skin: warm and dry Objective Data Vital Signs Vital Signs: Vital Signs Temp Pulse Resp BP Pulse Ox O2 Del Method 12/26/23 13:00 97.7 F 74 20 124/54 L 98 12/26/23 12:30 78 12/26/23 12:00 97.3 F L 83 20 126/68 97 12/26/23 11:01 Room Air 12/26/23 10:00 74 12/26/23 08:10 75 12/26/23 07:27 97.0 F L 76 24 H 149/74 H 96 12/26/23 06:00 73 12/26/23 04:51 97.6 F 77 16 150/63 H 97 12/26/23 04:00 70 12/26/23 02:00 67 12/26/23 00:00 57 L 12/26/23 00:00 97.1 F L 55 L 16 150/58 H 95 12/25/23 22:00 70 12/25/23 20:00 69 12/25/23 20:00 97.8 F 77 16 159/69 H 95 Intake/Output Intake/Output: Intake & Output 12/23/23 12/24/23 12/25/23 12/26/23 23:59 23:59 23:59 23:59 Intake Total 240 1500 440 Output Total 950 3100 2300 Balance -710 -1600 -1860 Meds/Results Medications: Active Medications Generic Name Dose Route Start Last Admin Trade Name Taz PRN Reason Stop Dose Admin Amlodipine Besylate 5 mg 12/25/23 09:00 12/26/23 14:04 Amlodipine Besylate 5 Mg Tablet PO 5 mg DAILY ANNI Administration Ascorbic Acid 500 mg 12/25/23 09:00 12/26/23 14:04 Ascorbic Acid 500 Mg Tablet PO 500 mg DAILY ANNI Administration Calcium Carbonate 500 mg 12/25/23 09:00 12/26/23 14:05 Calcium Carbonate (Oscal) 500 Mg Tablet PO 01/24/24 08:59 500 mg DAILY ANNI Administration Clonidine HCl 0.2 mg 12/25/23 21:00 12/26/23 09:31 Clonidine Hcl 0.2 Mg Tablet PO 0.2 mg Q12HR ANNI Administration Furosemide 40 mg 12/25/23 17:04 12/26/23 09:30
--- NOTE | 2023-12-26 13:01 | P.PNNP_ITS ---
Progress Note: A&P Assessment and Plan (1) Chronic kidney disease, stage 4 (severe): Code(s): N18.4 - Chronic kidney disease, stage 4 (severe) Status: Chronic Assessment and Plan: * baseline creatinine runs around 2.8 - 3.3mg/dl for the last year * secondary to HTN, vascular disease, and age-related change * his GFR has been as low as 12cc/min in the past which prompted referral for dialysis access placement * has AVF in place for dialysis if/when needed * responsive to IV diuretic therapy as noted by I/Os * follow trend of repeat labs and UOP (2) Acute on chronic diastolic heart failure: Code(s): I50.33 - Acute on chronic diastolic (congestive) heart failure Status: Acute Assessment and Plan: * as evidence by symptoms/presentation * reasonable response to IV diuretics with relative stability in renal function * follow I/Os, daily weights, and respiratory status * Cardiology following (3) Bilateral pleural effusion: Code(s): J90 - Pleural effusion, not elsewhere classified Status: Acute Assessment and Plan: * right larger than the left * holding anticoagulation * ongoing diuresis * s/p thoracentesis today (4) Paroxysmal atrial fibrillation: Code(s): I48.0 - Paroxysmal atrial fibrillation Status: Acute Assessment and Plan: * rate controlled * on anticoagulation - holding currently for thoracentesis procedure (5) Hypertension: Code(s): I10 - Essential (primary) hypertension Status: Chronic Assessment and Plan: * reasonable control * may improve further with diuresis * follow trend of hemodynamics Will continue to follow. Subjective Date/time seen: 12/26/23 13:01 Interval history: Follow-up for chronic kidney disease. Renal function relatively stable with ongoing IV diuresis; s/p ultrasound guided right thoracentesis earlier this afternoon and tolerated this intervention reasonably well; almost 4L negative since admission; still seems to have some dyspnea when seen but no worse than admission. Exam Narrative: General: elderly but WD/WN male in NAD Heart: normal S1 and S2; no rub Lungs: clear anteriorly; decreased at bases R > L Abdomen: soft, nontender, nondistended, positive bowel sounds Extremities: no cyanosis or clubbing; no edema Skin: warm and dry Objective Data Vital Signs Vital Signs: Vital Signs Temp Pulse Resp BP Pulse Ox O2 Del Method 12/26/23 13:00 97.7 F 74 20 124/54 L 98 12/26/23 12:30 78 12/26/23 12:00 97.3 F L 83 20 126/68 97 12/26/23 11:01 Room Air 12/26/23 10:00 74 12/26/23 08:10 75 12/26/23 07:27 97.0 F L 76 24 H 149/74 H 96 12/26/23 06:00 73 12/26/23 04:51 97.6 F 77 16 150/63 H 97 12/26/23 04:00 70 12/26/23 02:00 67 12/26/23 00:00 57 L 12/26/23 00:00 97.1 F L 55 L 16 150/58 H 95 12/25/23 22:00 70 12/25/23 20:00 69 12/25/23 20:00 97.8 F 77 16 159/69 H 95 Intake/Output Intake/Output: Intake & Output 12/23/23 12/24/23 12/25/23 12/26/23 23:59 23:59 23:59 23:59 Intake Total 240 1500 440 Output Total 950 3100 2300 Balance -710
--- NOTE | 2023-12-26 13:28 | PC.NURSE ---
1200- returned to room post procedure- pt npo for 2 hrs bandaid CDI to Right posterior mid back- pt stated breathing better- denies SOB or pain
[2023-12-26] MEDS: CHOLECALCIFEROL 1,000 UNITS TABLET 5000 UNITS PO (14:03)
[2023-12-26] MEDS: amLODIPine BESYLATE 5 MG TABLET PO (14:04)
[2023-12-26] MEDS: PRAVASTATIN SODIUM 20 MG TABLET PO (14:04)
[2023-12-26] MEDS: VITAMIN E 400 UNIT CAPSULE PO (14:04)
[2023-12-26] MEDS: ASCORBIC ACID 500 MG TABLET PO (14:04)
[2023-12-26] MEDS: CALCIUM CARBONATE (OSCAL) 500 MG TABLET PO (14:05)
[2023-12-26] MEDS: POTASSIUM CHLORIDE 20 MEQ ER TABLET 40 MEQ PO (14:05)
[2023-12-26] MEDS: RIVAROXABAN 20 MG TABLET PO (18:30)
[2023-12-26] MEDS: TEMAZEPAM (*CRX) 7.5 MG CAPSULE PO (20:20)
[2023-12-26] MEDS: LATANOPROST 0.005% OP SOLN 2.5 ML BTL 1 DROP EACH EYE (20:20)
[2023-12-27] VITALS (15 sets, daily range): BP systolic 119–156; BP diastolic 55–72; PULSE 60–82; RESP 16–26; TEMP 36.3–36.7; O2SAT 94–99
[2023-12-27 04:13] LABS: Hematocrit 40.7 % (42.0-52.0); Hemoglobin 13.7 g/dL (14.0-18.0); Mean Corpuscular HGB Conc 33.7 g/dl (32-36); Mean Corpuscular Hemoglobin 33.7 pg (26-34); Mean Platelet Volume 10.3 fl (7.4-10.4); Platelet Count Result 132 k/mm3 (150-375); Red Blood Count 4.07 M/mm3 (4.6-6.20); Red Cell Distribution Width 13.6 % (11.5-14.5); White Blood Count 5.8 K/mm3 (4.5-10.0)
[2023-12-27 04:24] LABS: INR 2.9; Prothrombin Time 32.7 Seconds (11.1-14.7)
[2023-12-27 04:25] LABS: Alanine Aminotransferase 25 U/L (6-50); Albumin Level 3.1 g/dL (3.5-5.1); Alkaline Phosphatase 78 U/L (38-126); Anion Gap 5 mmol/L (4-12); Aspartate Amino Transferase 23 U/L (17-59); Bilirubin,Total 2.2 mg/dL (0.2-1.3); Blood Urea Nitrogen 67 mg/dL (9-20); Calcium 8.8 mg/dL (8.4-10.2); Carbon Dioxide 29 mmol/L (22-30); Chloride 104 mmol/L (98-107); Estimated CRCL calculation 13 ml/min; Estimated Glomerular Filt Rate 16; Glucose 104 mg/dL (65-110); Potassium 3.9 mmol/L (3.4-5.0); Sodium 138 mmol/L (137-145)
[2023-12-27] MEDS: VITAMIN E 400 UNIT CAPSULE PO (09:08)
[2023-12-27] MEDS: CHOLECALCIFEROL 1,000 UNITS TABLET 5000 UNITS PO (09:08)
[2023-12-27] MEDS: ASCORBIC ACID 500 MG TABLET PO (09:08)
[2023-12-27] MEDS: cloNIDine HCL 0.2 MG TABLET PO ×2 (09:08→20:17)
[2023-12-27] MEDS: amLODIPine BESYLATE 5 MG TABLET PO (09:09)
[2023-12-27] MEDS: TIMOLOL MALEATE 0.5% OP SOLN 5 ML BOTTLE 1 DROP EACH EYE (09:09)
[2023-12-27] MEDS: CALCIUM CARBONATE (OSCAL) 500 MG TABLET PO (09:09)
[2023-12-27] MEDS: PRAVASTATIN SODIUM 20 MG TABLET PO (09:09)
--- NOTE | 2023-12-27 11:07 | PM.PNCARD ---
Progress Note: A&P Assessment and Plan (1) Elevated troponin: Code(s): R79.89 - Other specified abnormal findings of blood chemistry Status: Acute Assessment and Plan: Mildly elevated and flat, not consistent with ACS. No further workup recommended in this regard. (2) Paroxysmal atrial fibrillation: Code(s): I48.0 - Paroxysmal atrial fibrillation Status: Acute Assessment and Plan: Chronic atrial fibrillation rate controlled without the need for AV aashish agents. He is anticoagulated with Xarelto which has been resumed following thoracentesis yesterday. (3) CHF exacerbation: Qualifiers: Heart failure type: systolic Qualified Code(s): I50.23 - Acute on chronic systolic (congestive) heart failure Code(s): I50.9 - Heart failure, unspecified Status: Acute Assessment and Plan: Has been improving with IV furosemide and is s/p thoracentesis. Today his BUN/SCr is 67/3.6 (62/3.2). Will hold furosemide for today. His lungs sound essentially clear but today he does have lower extremity edema. Will order OTF hose. Continue to monitor I&O, daily weight. Plan 88-year-old man with what appears to be chronic atrial fibrillation. 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 Systemic anticoagulation with Xarelto should be continued. His troponin levels are not indicative of an ACS as I mentioned in my note. The only current cardiac recommendation is to resume Xarelto after his thoracentesis probably in the next couple of days. Who given the fact that his AFib is asymptomatic with good rate control and is not a new issue I do not anticipate attempting to cardiovert this elderly man. Await results of pleural fluid analysis and will follow with you while he is in the hospital. After discharge he does follow with a laboratory machinist elsewhere which presumably will continue Connor Starkey MD [facility] Subjective Date/time seen: 12/27/23 11:07 Interval history: Follow-up visit in this 88-year-old man with: Atrial fibrillation which I suspect has been chronic given significant biatrial dilation on echo and evidence of paroxysmal atrial fib on monitor a number of years ago as mentioned in my previous note. He feels well this morning and is anticipating thoracentesis later this morning in radiology. Date of service 12/27/2023: Feels well today. Breathing has improved following thoracentesis yesterday. No complaints. Eager to go home. Review of Systems Constitutional: Constitutional: Reports lethargy Eyes: Eyes: Reports no additional eye complaints ENT: Reports system reviewed and no additional complaints, except as documented Cardiovascular: Cardiovascular: Reports no additional cardiovascular complaints and Reports dyspnea Respiratory: Respiratory: Reports dyspnea Gastrointestinal: Gastrointestinal: Reports no additional gastrointestinal complaints Musculoskeletal: Musculoskeletal: Reports no additional musculoskeletal complaints Integumentary/Breasts: Skin/Breast: Reports system reviewed and no additional complaints, except as docu Neurologic: Reports system reviewed and no additional complaints, except as documented Endocrine: Endocrine: Reports no additional endocrine complaints Hematologic/Lymphatic: Hematologic/Lymphatic: Reports no additional hematologic/lymphatic complaints Allergic/Immunologic: Allergic/Immunologic: Reports no additional allergic/immunologic complaints Exam Const: General: comfortable and no acute distress Other: Pleasant elderly man no distress of any kind HENMT: Mouth: Yes moist mucous membranes Eyes: Sclera: sclerae normal Neck: Neck: supple Resp: Effort & Inspection: normal respiratory effort Auscultation: clear to auscultation bilaterally and diminished lung sounds Cardio: Rate: regular rate Rhythm: abnormal rhythm irregularly irregular Other: Very soft sy
[2023-12-27] MEDS: FUROSEMIDE INJ 40 MG/4 ML VIAL IV PUSH (11:23)
--- NOTE | 2023-12-27 12:31 | P.PNNP_ITS ---
Progress Note: A&P Assessment and Plan (1) Chronic kidney disease, stage 4 (severe): Code(s): N18.4 - Chronic kidney disease, stage 4 (severe) Status: Chronic Assessment and Plan: * baseline creatinine runs around 2.8 - 3.3mg/dl for the last year * secondary to HTN, vascular disease, and age-related change * his GFR has been as low as 12cc/min in the past which prompted referral for dialysis access placement * has AVF in place for dialysis if/when needed * responsive to IV diuretic therapy as noted by I/Os * follow trend of repeat labs and UOP (2) Acute on chronic diastolic heart failure: Code(s): I50.33 - Acute on chronic diastolic (congestive) heart failure Status: Acute Assessment and Plan: * as evidence by symptoms/presentation * reasonable response to IV diuretics with relative stability in renal function * follow I/Os, daily weights, and respiratory status * Cardiology following (3) Bilateral pleural effusion: Code(s): J90 - Pleural effusion, not elsewhere classified Status: Acute Assessment and Plan: * right larger than the left * ongoing diuresis * s/p thoracentesis on 12/25 (4) Paroxysmal atrial fibrillation: Code(s): I48.0 - Paroxysmal atrial fibrillation Status: Acute Assessment and Plan: * rate controlled * on anticoagulation (5) Hypertension: Code(s): I10 - Essential (primary) hypertension Status: Chronic Assessment and Plan: * reasonable control * may improve further with diuresis * follow trend of hemodynamics Will continue to follow. Subjective Date/time seen: 12/27/23 12:31 Interval history: Follow-up for chronic kidney disease. Reports feeling better overall in comparison to admission; about 3L negative with IV diuresis and is s/p thoracentesis yesterday with 1L removed; creatinine up a bit but not unexpected given interventions/therapy to date; no apparent distress and reports improvement in respiratory status. Exam Narrative: General: elderly but WD/WN male in NAD Heart: normal S1 and S2; no rub Lungs: clear anteriorly; decreased at bases R > L Abdomen: soft, nontender, nondistended, positive bowel sounds Extremities: no cyanosis or clubbing; trace edema Skin: warm and intact Objective Data Vital Signs Vital Signs: Vital Signs Temp Pulse Resp BP Pulse Ox O2 Del Method 05/02/24 12:00 62 12/27/23 11:46 98.0 F 62 16 119/55 L 99 12/27/23 10:00 68 12/27/23 08:00 82 12/27/23 08:23 Room Air 12/27/23 07:59 71 16 140/67 95 12/27/23 05:57 65 12/27/23 04:00 Room Air 12/27/23 04:00 82 12/27/23 02:00 60 12/27/23 04:21 97.8 F 67 19 136/67 94 12/27/23 00:00 Room Air 12/27/23 00:00 63 12/26/23 23:53 98 F 66 20 127/57 L 94 12/26/23 21:57 61 12/26/23 20:00 Room Air 12/26/23 20:00 59 L 12/26/23 19:53 98.1 F 61 24 H 159/64 H 96 12/26/23 16:00 77 12/26/23 16:00 97.7 F 74 20 124/54 L 98 12/26/23 14:10 70 Intake/Output Intake/Output: Intake & Output 12/24/23 12/25/23 12/26/23 12/27/23 23:59
--- NOTE | 2023-12-27 12:31 | PM.PNNEP ---
Progress Note: A&P Assessment and Plan (1) Chronic kidney disease, stage 4 (severe): Code(s): N18.4 - Chronic kidney disease, stage 4 (severe) Status: Chronic Assessment and Plan: baseline creatinine runs around 2.8 - 3.3mg/dl for the last year secondary to HTN, vascular disease, and age-related change his GFR has been as low as 12cc/min in the past which prompted referral for dialysis access placement has AVF in place for dialysis if/when needed responsive to IV diuretic therapy as noted by I/Os follow trend of repeat labs and UOP (2) Acute on chronic diastolic heart failure: Code(s): I50.33 - Acute on chronic diastolic (congestive) heart failure Status: Acute Assessment and Plan: as evidence by symptoms/presentation reasonable response to IV diuretics with relative stability in renal function follow I/Os, daily weights, and respiratory status Cardiology following (3) Bilateral pleural effusion: Code(s): J90 - Pleural effusion, not elsewhere classified Status: Acute Assessment and Plan: right larger than the left ongoing diuresis s/p thoracentesis on 12/25 (4) Paroxysmal atrial fibrillation: Code(s): I48.0 - Paroxysmal atrial fibrillation Status: Acute Assessment and Plan: rate controlled on anticoagulation (5) Hypertension: Code(s): I10 - Essential (primary) hypertension Status: Chronic Assessment and Plan: reasonable control may improve further with diuresis follow trend of hemodynamics Will continue to follow. Subjective Date/time seen: 12/27/23 12:31 Interval history: Follow-up for chronic kidney disease. Reports feeling better overall in comparison to admission; about 3L negative with IV diuresis and is s/p thoracentesis yesterday with 1L removed; creatinine up a bit but not unexpected given interventions/therapy to date; no apparent distress and reports improvement in respiratory status. Exam Narrative: General: elderly but WD/WN male in NAD Heart: normal S1 and S2; no rub Lungs: clear anteriorly; decreased at bases R > L Abdomen: soft, nontender, nondistended, positive bowel sounds Extremities: no cyanosis or clubbing; trace edema Skin: warm and intact Objective Data Vital Signs Vital Signs: Vital Signs Temp Pulse Resp BP Pulse Ox O2 Del Method 12/27/23 12:00 62 12/27/23 11:46 98.0 F 62 16 119/55 L 99 12/27/23 10:00 68 12/27/23 08:00 82 12/27/23 08:23 Room Air 12/27/23 07:59 71 16 140/67 95 12/27/23 05:57 65 12/27/23 04:00 Room Air 12/27/23 04:00 82 12/27/23 02:00 60 12/27/23 04:21 97.8 F 67 19 136/67 94 12/27/23 00:00 Room Air 12/27/23 00:00 63 12/26/23 23:53 98 F 66 20 127/57 L 94 12/26/23 21:57 61 12/26/23 20:00 Room Air 12/26/23 20:00 59 L 12/26/23 19:53 98.1 F 61 24 H 159/64 H 96 12/26/23 16:00 77 12/26/23 16:00 97.7 F 74 20 124/54 L 98 12/26/23 14:10 70 Intake/Output Intake/Output: Intake & Output 12/24/23 12/25/23 12/26/23 12/27/23 23:59 23:59 23:59 23:59 Intake Total 240 1500 680 540 Output Total 950 3100 2300 775 Balance -710 -1600 -1620 -235 Meds/Results Medications: Active Medications Generic Name Dose Route Start Last Admin Trade Name Taz PRN Reason Stop Dose Admin Amlodipine Besylate 5 mg 12/25/23 09:00 12/27/23 09:09 Amlodipine Besylate 5 Mg Tablet PO 5 mg DAILY ANNI Administration Ascorbic Acid 500 mg 12/25/23 09:00 12/27/23 09:08 Ascorbic Acid 500 Mg Tablet PO 500 mg DAILY ANNI Administration Calcium Carbonate 500 mg 12/25/23 09:00 12/27/23 09:09 Calcium Carbonate (Oscal) 500 Mg Tablet PO 01/24/24 08:59 500 mg DAILY ANNI Administration Clonidine HCl 0.2 mg 12/25/23 21:00 12/27/23 09:08 Clonidine Hcl 0.2 Mg Tablet PO 0.2 mg
--- NOTE | 2023-12-27 13:03 | P.PNIM_ITS ---
Progress Note: A&P Assessment and Plan (1) Pleural effusion: Code(s): J90 - Pleural effusion, not elsewhere classified Status: Acute (2) Elevated troponin: Code(s): R79.89 - Other specified abnormal findings of blood chemistry Status: Acute (3) CHF exacerbation: Qualifiers: Heart failure type: systolic Qualified Code(s): I50.23 - Acute on chronic systolic (congestive) heart failure Code(s): I50.9 - Heart failure, unspecified Status: Acute (4) Hyperlipidemia: Code(s): E78.5 - Hyperlipidemia, unspecified Status: Acute (5) Chronic anticoagulation: Code(s): Z79.01 - technician terminal and repeater (current) use of anticoagulants Status: Acute (6) Paroxysmal atrial fibrillation: Code(s): I48.0 - Paroxysmal atrial fibrillation Status: Acute (7) Hypertension: Code(s): I10 - Essential (primary) hypertension Status: Acute (8) Chronic kidney disease, stage 4 (severe): Code(s): N18.4 - Chronic kidney disease, stage 4 (severe) Status: Chronic Plan Acute on chronic Systolic heart failure * BNP 3780 POA * cardiology consulted * IV Lasix b.i.d. * monitor renal function during diuresis * previous echocardiogram 2019 * echocardiogram: systolic dysfunction with mild biatrial dilation, LVEF 45-50%, moderate MR, moderate TR, and mild AR and NC. * EKG AFIB * chest x-ray large right pleural effusion smaller left/cardiomegaly * Optimize Rene inhibitors, beta-blockers, ARNI * Daily weight. * fluid restriction * Optimize blood pressure less than 130/80. * Fall risk assessment. Bilateral pleural effusion * Right larger than the left * Xarelto continued * Continue diuresis with IV the Lasix * Thoracentesis pending Elevated troponin * NO CP/SOB likely secondary to ischemic demand * serial troponins x3 q.6 hours trending flat * EKG without ischemic changes q.6 hours * cardiology consulted * EKG AFIB controlled rate Acute on chronic renal failure * Stage IV * Cr 3.6 , will hold IV lasix due to bump in creatinine * Cardiology following * AVF in place * Avoid nephrotoxic drugs. * Monitor antihypertensive drug therapy. * Avoid NSAIDs. * Routine CMP monitoring GFR. * Monitor electrolytes especially potassium. * Antibiotic doses depending on creatinine clearance. * Pharmacy does medications. HX AFIB: Holding Xarelto for Thoracentesis HX HTN: Resumed home medications/ BP per unit protocol Code status: Full code per patient DVT prophylaxis: Xarelto Stress ulcer prophylaxis: Protonix 40 daily PT/OT notes: Pending Disposition: Patient admitted the with acute on chronic CHF and bilateral pleural effusion will hold patient's Xarelto for scheduled thoracentesis. PT OT pending. Will continue with aggressive IV diuresis consulted cardiology and Neurology consult for further recommendations. 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 The patient provides the following history. Over the course of the last 3 weeks he has noticed an increase in his chronic lower extremity
--- NOTE | 2023-12-27 13:03 | PM.IMPN ---
Progress Note: A&P Assessment and Plan (1) Pleural effusion: Code(s): J90 - Pleural effusion, not elsewhere classified Status: Acute (2) Elevated troponin: Code(s): R79.89 - Other specified abnormal findings of blood chemistry Status: Acute (3) CHF exacerbation: Qualifiers: Heart failure type: systolic Qualified Code(s): I50.23 - Acute on chronic systolic (congestive) heart failure Code(s): I50.9 - Heart failure, unspecified Status: Acute (4) Hyperlipidemia: Code(s): E78.5 - Hyperlipidemia, unspecified Status: Acute (5) Chronic anticoagulation: Code(s): Z79.01 - terminal operations manager (current) use of anticoagulants Status: Acute (6) Paroxysmal atrial fibrillation: Code(s): I48.0 - Paroxysmal atrial fibrillation Status: Acute (7) Hypertension: Code(s): I10 - Essential (primary) hypertension Status: Acute (8) Chronic kidney disease, stage 4 (severe): Code(s): N18.4 - Chronic kidney disease, stage 4 (severe) Status: Chronic Plan Acute on chronic Systolic heart failure BNP 3780 POA cardiology consulted IV Lasix b.i.d. monitor renal function during diuresis previous echocardiogram 2019 echocardiogram: systolic dysfunction with mild biatrial dilation, LVEF 45-50%, moderate MR, moderate TR, and mild AR and GA. EKG AFIB chest x-ray large right pleural effusion smaller left/cardiomegaly Optimize Rene inhibitors, beta-blockers, ARNI Daily weight. fluid restriction Optimize blood pressure less than 130/80. Fall risk assessment. Bilateral pleural effusion Right larger than the left Xarelto continued Continue diuresis with IV the Lasix Thoracentesis pending Elevated troponin NO CP/SOB likely secondary to ischemic demand serial troponins x3 q.6 hours trending flat EKG without ischemic changes q.6 hours cardiology consulted EKG AFIB controlled rate Acute on chronic renal failure Stage IV Cr 3.6 , will hold IV lasix due to bump in creatinine Cardiology following AVF in place Avoid nephrotoxic drugs. Monitor antihypertensive drug therapy. Avoid NSAIDs. Routine CMP monitoring GFR. Monitor electrolytes especially potassium. Antibiotic doses depending on creatinine clearance. Pharmacy does medications. HX AFIB: Holding Xarelto for Thoracentesis HX HTN: Resumed home medications/ BP per unit protocol Code status: Full code per patient DVT prophylaxis: Xarelto Stress ulcer prophylaxis: Protonix 40 daily PT/OT notes: Pending Disposition: Patient admitted the with acute on chronic CHF and bilateral pleural effusion will hold patient's Xarelto for scheduled thoracentesis. PT OT pending. Will continue with aggressive IV diuresis consulted cardiology and Neurology consult for further recommendations. 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 The patient provides the following history. Over the course of the last 3 weeks he has noticed an increase in his chronic lower extremity edema and progressive dyspnea on lesser and lesser exertion. He is now having mild shortness of breath with conversation. He states compliance with his medications and has not had any change in dosages. He has not noticed any with weight gain. There has been no change in urine output that he can appreciate. He also denies syncope, near syncope, pleuritic pain, chest pain, sensations of racing heart, nausea, vomiting, sweats, orthopnea, paroxysmal nocturnal dyspnea, and calf pain.
--- NOTE | 2023-12-27 14:28 | IVDEFINITY ---
Prior to administration of IV Definity the patient was educated on the risks and benefits of the imaging enhancing agent including potential adverse side effects. The patient verbalized understanding. Allergies were verified. No exclusion criteria were identified and at least one of the following inclusion criteria were met: 1) physician request, 2) patient technically difficult to image (per the [place] [employer] guidelines of two or more segments not discernable within the apical view), or 3) questionable left ventricular function. ?
--- NOTE | 2023-12-27 14:47 | PC.NURSE ---
This patient, Roger Jacome, was transferred to [facility]placed by [facility] on 12/27/23 at 1447. Personal belongings sent with patient. Report given to KATARINA Trinidad. Appropriate documentation sent with patient.
[2023-12-27] MEDS: RIVAROXABAN 20 MG TABLET PO (16:53)
[2023-12-27] MEDS: LATANOPROST 0.005% OP SOLN 2.5 ML BTL 1 DROP EACH EYE (20:17)
[2023-12-27] MEDS: TEMAZEPAM (*CRX) 7.5 MG CAPSULE PO (20:17)
[2023-12-28 00:04] VITALS: PULSE 61
[2023-12-28 04:00] VITALS: BP 142/71; PULSE 78; RESP 18; TEMP 36.6; O2SAT 97
[2023-12-28 04:01] VITALS: PULSE 60
[2023-12-28 05:06] LABS: Hematocrit 40.9 % (42.0-52.0); Hemoglobin 13.6 g/dL (14.0-18.0); Mean Corpuscular HGB Conc 33.3 g/dl (32-36); Mean Corpuscular Hemoglobin 33.4 pg (26-34); Mean Corpuscular Volume 100.5 fl (80-100); Mean Platelet Volume 9.9 fl (7.4-10.4); Platelet Count Result 126 k/mm3 (150-375); Red Blood Count 4.07 M/mm3 (4.6-6.20); Red Cell Distribution Width 13.3 % (11.5-14.5); White Blood Count 5.7 K/mm3 (4.5-10.0)
[2023-12-28 05:15] LABS: INR 3.1; Prothrombin Time 34.5 Seconds (11.1-14.7)
[2023-12-28 05:18] LABS: Alanine Aminotransferase 25 U/L (6-50); Albumin Level 3.1 g/dL (3.5-5.1); Alkaline Phosphatase 78 U/L (38-126); Anion Gap 5 mmol/L (4-12); Aspartate Amino Transferase 29 U/L (17-59); Bilirubin,Total 2.4 mg/dL (0.2-1.3); Blood Urea Nitrogen 67 mg/dL (9-20); Calcium 8.8 mg/dL (8.4-10.2); Carbon Dioxide 30 mmol/L (22-30); Chloride 100 mmol/L (98-107); Estimated CRCL calculation 14 ml/min; Estimated Glomerular Filt Rate 17; Glucose 96 mg/dL (65-110); Potassium 3.9 mmol/L (3.4-5.0); Sodium 135 mmol/L (137-145)
[2023-12-28 08:00] VITALS: PULSE 79
[2023-12-28] MEDS: cloNIDine HCL 0.2 MG TABLET PO (09:15)
[2023-12-28] MEDS: ASCORBIC ACID 500 MG TABLET PO (09:15)
[2023-12-28] MEDS: amLODIPine BESYLATE 5 MG TABLET PO (09:16)
[2023-12-28] MEDS: TIMOLOL MALEATE 0.5% OP SOLN 5 ML BOTTLE 1 DROP EACH EYE (09:16)
[2023-12-28] MEDS: FUROSEMIDE 40 MG TABLET PO (09:16)
[2023-12-28] MEDS: PRAVASTATIN SODIUM 20 MG TABLET PO (09:16)
[2023-12-28] MEDS: CHOLECALCIFEROL 1,000 UNITS TABLET 5000 UNITS PO (09:16)
[2023-12-28] MEDS: VITAMIN E 400 UNIT CAPSULE PO (09:16)
[2023-12-28] MEDS: CALCIUM CARBONATE (OSCAL) 500 MG TABLET PO (09:16)
[2023-12-28 10:00] VITALS: BP 114/52; PULSE 72; RESP 17; TEMP 36.6; O2SAT 100
--- NOTE | 2023-12-28 10:03 | PM.PNNEP ---
Progress Note: A&P Assessment and Plan (1) Chronic kidney disease, stage 4 (severe): Code(s): N18.4 - Chronic kidney disease, stage 4 (severe) Status: Chronic Assessment and Plan: baseline creatinine runs around 2.8 - 3.3mg/dl for the last year secondary to HTN, vascular disease, and age-related change his GFR has been as low as 12cc/min in the past which prompted referral for dialysis access placement has AVF in place for dialysis if/when needed responsive to IV diuretic therapy as noted by I/Os follow trend of repeat labs and UOP (2) Acute on chronic diastolic heart failure: Code(s): I50.33 - Acute on chronic diastolic (congestive) heart failure Status: Acute Assessment and Plan: as evidence by symptoms/presentation reasonable response to IV diuretics with relative stability in renal function follow I/Os, daily weights, and respiratory status Cardiology following (3) Bilateral pleural effusion: Code(s): J90 - Pleural effusion, not elsewhere classified Status: Acute Assessment and Plan: right larger than the left ongoing diuresis s/p thoracentesis on 12/25 (4) Paroxysmal atrial fibrillation: Code(s): I48.0 - Paroxysmal atrial fibrillation Status: Acute Assessment and Plan: rate controlled on anticoagulation (5) Hypertension: Code(s): I10 - Essential (primary) hypertension Status: Chronic Assessment and Plan: reasonable control may improve further with diuresis follow trend of hemodynamics Will continue to follow. Subjective Date/time seen: 12/28/23 10:03 Interval history: Follow-up for chronic kidney disease. Overall, continues to feel reasonably well in general; breathing/respiratory status is stable if not improved in comparison to admission (approximately 4L negative since admission with diuretic therapy); still with lower extremity edema but seems closer to baseline; no apparent distress noted at the time of my visit. Exam Narrative: General: elderly but WD/WN male in NAD Heart: normal S1 and S2; no rub Lungs: clear anteriorly; decreased at bases R > L Abdomen: soft, nontender, nondistended, positive bowel sounds Extremities: no cyanosis or clubbing; trace edema Skin: no rash or nodules Objective Data Vital Signs Vital Signs: Vital Signs Temp Pulse Resp BP Pulse Ox O2 Del Method 12/28/23 10:00 98 F 72 17 114/52 L 100 Room Air 12/28/23 04:00 97.8 F 78 18 142/71 H 97 12/28/23 04:01 60 12/28/23 00:04 61 12/27/23 20:01 71 12/27/23 21:10 97.3 F L 81 26 H 156/72 H 95 12/27/23 20:00 97.3 F L 81 26 H 156/72 H 95 12/27/23 20:00 74 18 98 Room Air 12/27/23 16:00 81 12/27/23 16:05 97.4 F L 74 18 139/72 98 Intake/Output Intake/Output: Intake & Output 12/25/23 12/26/23 12/27/23 12/28/23 23:59 23:59 23:59 23:59 Intake Total 0963 573 9213 100 Output Total 3100 2300 1375 400 Balance -1600 -1620 125 -300 Meds/Results Medications: Medications: Active Medications Generic Name Dose Route Start Last Admin ? Trade Name Freq? PRN Reason Stop Dose Admin Amlodipine Besylate ?5 mg ?12/25/23 09:00 ?12/28/23 09:16 ? Amlodipine Besylate 5 Mg Tablet ?PO ? ?5 mg ? ?DAILY ANNI ? ?Administration Ascorbic Acid ?500 mg ?12/25/23 09:00 ?12/28/23 09:15 ? Ascorbic Acid 500 Mg Tablet ?PO ? ?500 mg ? ?DAILY ANNI ? ?Administration Calcium Carbonate ?500 mg ?12/25/23 09:00 ?12/28/23 09:16 ? Calcium Carbonate (Oscal) 500 Mg Tablet ?PO ?01/24/24 08:59 ?500 mg ? ?DAILY ANNI ? ?Administration Clonidine HCl ?0.2 mg ?12/25/23 21:00 ?12/28/23 09:15 ? Clonidine Hcl 0.2 Mg Tablet ?PO ? ?0.2 mg ? ?Q12HR ANNI ? ?Administration Furosemide ?40 mg ?12/28/23 09:00 ?12/28/23 09:16 ? Furosemide 40 Mg Tablet ?PO ? ?40 mg ? ?QAM ANNI ? ?Administration Latanoprost ?1 drop ?12/24/23 21:00 ?12/27/23 20:17 ? Latanoprost 0.005% Op Soln 2
--- NOTE | 2023-12-28 10:03 | P.PNNP_ITS ---
Progress Note: A&P Assessment and Plan (1) Chronic kidney disease, stage 4 (severe): Code(s): N18.4 - Chronic kidney disease, stage 4 (severe) Status: Chronic Assessment and Plan: * baseline creatinine runs around 2.8 - 3.3mg/dl for the last year * secondary to HTN, vascular disease, and age-related change * his GFR has been as low as 12cc/min in the past which prompted referral for dialysis access placement * has AVF in place for dialysis if/when needed * responsive to IV diuretic therapy as noted by I/Os * follow trend of repeat labs and UOP (2) Acute on chronic diastolic heart failure: Code(s): I50.33 - Acute on chronic diastolic (congestive) heart failure Status: Acute Assessment and Plan: * as evidence by symptoms/presentation * reasonable response to IV diuretics with relative stability in renal function * follow I/Os, daily weights, and respiratory status * Cardiology following (3) Bilateral pleural effusion: Code(s): J90 - Pleural effusion, not elsewhere classified Status: Acute Assessment and Plan: * right larger than the left * ongoing diuresis * s/p thoracentesis on 12/25 (4) Paroxysmal atrial fibrillation: Code(s): I48.0 - Paroxysmal atrial fibrillation Status: Acute Assessment and Plan: * rate controlled * on anticoagulation (5) Hypertension: Code(s): I10 - Essential (primary) hypertension Status: Chronic Assessment and Plan: * reasonable control * may improve further with diuresis * follow trend of hemodynamics Will continue to follow. Subjective Date/time seen: 12/28/23 10:03 Interval history: Follow-up for chronic kidney disease. Overall, continues to feel reasonably well in general; breathing/respiratory status is stable if not improved in comparison to admission (approximately 4L negative since admission with diuretic therapy); still with lower extremity edema but seems closer to baseline; no apparent distress noted at the time of my visit. Exam Narrative: General: elderly but WD/WN male in NAD Heart: normal S1 and S2; no rub Lungs: clear anteriorly; decreased at bases R > L Abdomen: soft, nontender, nondistended, positive bowel sounds Extremities: no cyanosis or clubbing; trace edema Skin: no rash or nodules Objective Data Vital Signs Vital Signs: Vital Signs Temp Pulse Resp BP Pulse Ox O2 Del Method 12/28/23 10:00 98 F 72 17 114/52 L 100 Room Air 12/28/23 04:00 97.8 F 78 18 142/71 H 97 12/28/23 04:01 60 12/28/23 00:04 61 12/27/23 20:01 71 12/27/23 21:10 97.3 F L 81 26 H 156/72 H 95 12/27/23 20:00 97.3 F L 81 26 H 156/72 H 95 12/27/23 20:00 74 18 98 Room Air 12/27/23 16:00 81 12/27/23 16:05 97.4 F L 74 18 139/72 98 Intake/Output Intake/Output: Intake & Output 12/25/23 12/26/23 12/27/23 12/28/23 23:59 23:59 23:59 23:59 Intake Total 7269 418 1620 100 Output Total 3100 2300 1375 400 Balance -1600 -1620 125 -300 Meds/Results Medications: Medications: Active Medications Generic Name Dose Route Start Last Admin ? Trade Name Freq? PRN Reason Sto
--- NOTE | 2023-12-28 10:04 | PM.PNCARD ---
Progress Note: A&P Assessment and Plan (1) Elevated troponin: Code(s): R79.89 - Other specified abnormal findings of blood chemistry Status: Acute Assessment and Plan: Mildly elevated and flat, not consistent with ACS. No further workup recommended in this regard. (2) Paroxysmal atrial fibrillation: Code(s): I48.0 - Paroxysmal atrial fibrillation Status: Acute Assessment and Plan: Chronic atrial fibrillation rate controlled without the need for AV aashish agents. He is anticoagulated with Xarelto which has been resumed following thoracentesis yesterday. (3) CHF exacerbation: Qualifiers: Heart failure type: systolic Qualified Code(s): I50.23 - Acute on chronic systolic (congestive) heart failure Code(s): I50.9 - Heart failure, unspecified Status: Acute Assessment and Plan: Has been improving with IV furosemide and is s/p thoracentesis. Today his BUN/SCr is 67/3.5 (62/3.6). He continues to have lower extremity edema which he states is chronic. Continue furosemide 40mg daily. Will need outpatient BMP one week after d/c. Plan Stable from a cardiac standpoint. Cardiology will sign off please call with questions. Subjective Date/time seen: 12/28/23 10:04 Interval history: Follow-up visit in this 88-year-old man with: Atrial fibrillation which I suspect has been chronic given significant biatrial dilation on echo and evidence of paroxysmal atrial fib on monitor a number of years ago as mentioned in my previous note. He feels well this morning and is anticipating thoracentesis later this morning in radiology. Date of service 12/27/2023: Feels well today. Breathing has improved following thoracentesis yesterday. No complaints. Eager to go home. Date of service 12/28/2023: Continues to feel well. He has no complaints today. Review of Systems Constitutional: Constitutional: Reports lethargy Eyes: Eyes: Reports no additional eye complaints ENT: Reports system reviewed and no additional complaints, except as documented Cardiovascular: Cardiovascular: Reports no additional cardiovascular complaints and Reports dyspnea Respiratory: Respiratory: Reports dyspnea Gastrointestinal: Gastrointestinal: Reports no additional gastrointestinal complaints Musculoskeletal: Musculoskeletal: Reports no additional musculoskeletal complaints Integumentary/Breasts: Skin/Breast: Reports system reviewed and no additional complaints, except as docu Neurologic: Reports system reviewed and no additional complaints, except as documented Endocrine: Endocrine: Reports no additional endocrine complaints Hematologic/Lymphatic: Hematologic/Lymphatic: Reports no additional hematologic/lymphatic complaints Allergic/Immunologic: Allergic/Immunologic: Reports no additional allergic/immunologic complaints Exam Const: General: comfortable and no acute distress Other: Pleasant elderly man no distress of any kind HENMT: Mouth: Yes moist mucous membranes Eyes: Sclera: sclerae normal Neck: Neck: supple Resp: Effort & Inspection: normal respiratory effort Auscultation: clear to auscultation bilaterally and diminished lung sounds Cardio: Rate: regular rate Rhythm: abnormal rhythm irregularly irregular Other: Very soft systolic murmur GI: Auscultation: normal bowel sounds Skin: General skin exam: normal color Neuro: Other: Alert and oriented x3 Extrem: Other: 1-2+ bilateral pretibial and pedal edema Objective Data Vital Signs Vital Signs: Vital Signs - 24 hr 12/27/23 11:46 12/27/23 12:00 12/27/23 16:05 Temperature 36.7 C 36.3 C L Pulse Rate 62 62 74 Respiratory Rate 16 18 Blood Pressure 119/55 L 139/72 Pulse Oximetry 99 98 Oxygen Delivery 12/27/23 16:00 12/27/23 20:00 12/27/23 20:00 Temperature 36.3 C L Pulse Rate 81 74 81 Respiratory Rate 18 26 H Blood Pressure 156/72 H Pulse Oximetry 98 95
--- NOTE | 2023-12-28 11:30 | P.DS_ITS ---
DS: Admitting Diagnosis Discharge Date 12/28/2023 Admitting Diagnosis A/C systolic heart failure/Pleural effusion/A/C renal failure DS: Discharge Diagnosis Discharge Diagnosis (1) Pleural effusion: Code(s): J90 - Pleural effusion, not elsewhere classified Status: Acute (2) Elevated troponin: Code(s): R79.89 - Other specified abnormal findings of blood chemistry Status: Acute (3) CHF exacerbation: Qualifiers: Heart failure type: systolic Qualified Code(s): I50.23 - Acute on chronic systolic (congestive) heart failure Code(s): I50.9 - Heart failure, unspecified Status: Acute (4) Hyperlipidemia: Code(s): E78.5 - Hyperlipidemia, unspecified Status: Acute (5) Chronic anticoagulation: Code(s): Z79.01 - buttermaker (current) use of anticoagulants Status: Acute (6) Paroxysmal atrial fibrillation: Code(s): I48.0 - Paroxysmal atrial fibrillation Status: Acute (7) Hypertension: Code(s): I10 - Essential (primary) hypertension Status: Acute (8) Chronic kidney disease, stage 4 (severe): Code(s): N18.4 - Chronic kidney disease, stage 4 (severe) Status: Chronic Plan Acute on chronic Systolic heart failure * BNP 3780 POA * cardiology consulted * IV Lasix b.i.d. * monitor renal function during diuresis * previous echocardiogram 2019 * echocardiogram: systolic dysfunction with mild biatrial dilation, LVEF 45-50%, moderate MR, moderate TR, and mild AR and LA. * EKG AFIB * chest x-ray large right pleural effusion smaller left/cardiomegaly * Optimize Rene inhibitors, beta-blockers, ARNI * Daily weight. * fluid restriction * Optimize blood pressure less than 130/80. * Fall risk assessment. Bilateral pleural effusion * Right larger than the left * Xarelto continued * Continue diuresis with IV the Lasix * Thoracentesis pending Elevated troponin * NO CP/SOB likely secondary to ischemic demand * serial troponins x3 q.6 hours trending flat * EKG without ischemic changes q.6 hours * cardiology consulted * EKG AFIB controlled rate Acute on chronic renal failure * Stage IV * Cr 3.6 , will hold IV lasix due to bump in creatinine * Cardiology following * AVF in place * Avoid nephrotoxic drugs. * Monitor antihypertensive drug therapy. * Avoid NSAIDs. * Routine CMP monitoring GFR. * Monitor electrolytes especially potassium. * Antibiotic doses depending on creatinine clearance. * Pharmacy does medications. HX AFIB: Resumed Xarelto post thoracentesis HX HTN: Resumed home medications/ BP per unit protocol Disposition: Discharged to home. DS: Summary Hospital Course Reason for hospitalization: A/C systolic heart failure/Pleural effusion/A/C renal failure Hospital Course: 12/23:Admission Father Roger is a very pleasant 88-year-old male with chronic kidney disease, hypertension, hyperlipidemia, paroxysmal atrial fibrillation on chronic anticoagulation, TIA with echocardiogram showing small patent foramen ovale, and glaucoma who presented to the emergency department for evaluation of shortness of breath. The patient provides the following history. Over the course of the last 3 weeks he has noticed an increase in his chronic lower extremity edema and progressive dyspnea on lesser and lesser exertion. He is now having mild shortness of breath with conversation. He states compliance with his medications and has not had any change in dosages.
--- NOTE | 2023-12-28 11:30 | PM.DS ---
DS: Admitting Diagnosis Discharge Date 12/28/2023 Admitting Diagnosis A/C systolic heart failure/Pleural effusion/A/C renal failure DS: Discharge Diagnosis Discharge Diagnosis (1) Pleural effusion: Code(s): J90 - Pleural effusion, not elsewhere classified Status: Acute (2) Elevated troponin: Code(s): R79.89 - Other specified abnormal findings of blood chemistry Status: Acute (3) CHF exacerbation: Qualifiers: Heart failure type: systolic Qualified Code(s): I50.23 - Acute on chronic systolic (congestive) heart failure Code(s): I50.9 - Heart failure, unspecified Status: Acute (4) Hyperlipidemia: Code(s): E78.5 - Hyperlipidemia, unspecified Status: Acute (5) Chronic anticoagulation: Code(s): Z79.01 - intermission coordinator (current) use of anticoagulants Status: Acute (6) Paroxysmal atrial fibrillation: Code(s): I48.0 - Paroxysmal atrial fibrillation Status: Acute (7) Hypertension: Code(s): I10 - Essential (primary) hypertension Status: Acute (8) Chronic kidney disease, stage 4 (severe): Code(s): N18.4 - Chronic kidney disease, stage 4 (severe) Status: Chronic Plan Acute on chronic Systolic heart failure BNP 3780 POA cardiology consulted IV Lasix b.i.d. monitor renal function during diuresis previous echocardiogram 2019 echocardiogram: systolic dysfunction with mild biatrial dilation, LVEF 45-50%, moderate MR, moderate TR, and mild AR and TN. EKG AFIB chest x-ray large right pleural effusion smaller left/cardiomegaly Optimize Rene inhibitors, beta-blockers, ARNI Daily weight. fluid restriction Optimize blood pressure less than 130/80. Fall risk assessment. Bilateral pleural effusion Right larger than the left Xarelto continued Continue diuresis with IV the Lasix Thoracentesis pending Elevated troponin NO CP/SOB likely secondary to ischemic demand serial troponins x3 q.6 hours trending flat EKG without ischemic changes q.6 hours cardiology consulted EKG AFIB controlled rate Acute on chronic renal failure Stage IV Cr 3.6 , will hold IV lasix due to bump in creatinine Cardiology following AVF in place Avoid nephrotoxic drugs. Monitor antihypertensive drug therapy. Avoid NSAIDs. Routine CMP monitoring GFR. Monitor electrolytes especially potassium. Antibiotic doses depending on creatinine clearance. Pharmacy does medications. HX AFIB: Resumed Xarelto post thoracentesis HX HTN: Resumed home medications/ BP per unit protocol Disposition: Discharged to home. DS: Summary Hospital Course Reason for hospitalization: A/C systolic heart failure/Pleural effusion/A/C renal failure Hospital Course: 12/23:Admission Father Roger is a very pleasant 88-year-old male with chronic kidney disease, hypertension, hyperlipidemia, paroxysmal atrial fibrillation on chronic anticoagulation, TIA with echocardiogram showing small patent foramen ovale, and glaucoma who presented to the emergency department for evaluation of shortness of breath. The patient provides the following history. Over the course of the last 3 weeks he has noticed an increase in his chronic lower extremity edema and progressive dyspnea on lesser and lesser exertion. He is now having mild shortness of breath with conversation. He states compliance with his medications and has not had any change in dosages. He has not noticed any with weight gain. There has been no change in urine output that he can appreciate. He also denies syncope, near syncope, pleuritic pain, chest pain, sensations of racing heart, nausea, vomiting, sweats, orthopnea, paroxysmal nocturnal dyspnea, and calf pain. In the ED: He was afebrile on arrival. Blood pressures have been running between the 140s to 170s systolic. Labs were significant for an INR of 2.2, sodium 136, BUN 70, creatinine 3.00, troponin 0.06 8, proBNP 37
[2023-12-28 12:00] VITALS: PULSE 70
== END 2023-12-28 12:25 | disposition home or self-care (01) | DRG 291 ==
LOC: ANHED 13:41 → ANHIMU 14:33 → ANH2MED 12-28 11:30 → ANHIMU 12-31 11:18
PROVIDERS: Nurse Practitioner Family; Physician Assistant; Student in an Organized Health Care Education/Training Program; Admitting Provider Internal Medicine; Emergency Provider Emergency Medicine; PCP Family Medicine; Visit Provider Internal Medicine
DX: I13.0 Hypertensive heart and chronic kidney disease with heart failure and stage 1 through stage 4 chronic kidney disease, or unspecified chronic kidney disease (principal); I50.23 Acute on chronic systolic (congestive) heart failure; N18.4 Chronic kidney disease, stage 4 (severe); N17.9 Acute kidney failure, unspecified; Q21.12 Patent foramen ovale; I48.0 Paroxysmal atrial fibrillation; E78.5 Hyperlipidemia, unspecified; R79.89 Other specified abnormal findings of blood chemistry; Z20.822 Contact with and (suspected) exposure to COVID-19; Z79.01 Long term (current) use of anticoagulants; Z86.73 Personal history of transient ischemic attack (TIA), and cerebral infarction without residual deficits
CPT/HCPCS: 32555; 36415; 71046; 71250; 80048; 80053; 83735; 83880; 84439; 84443; 84480; 84484; 85025; 85027; 85610; 85730; 87637; 93005; 96374; 96376; 97110; 97116; 97161; 97165; 97530; 99285; A9270; C8929; G0378; J1940; Q9957

== ENCOUNTER 2024-01-18 13:06 | Inpatient (IN) | payer MEDICARE, OTHER, SELFPAY ==
[2024-01-18] VITALS (10 sets, daily range): BP systolic 150–182; BP diastolic 68–90; PULSE 67–93; RESP 13–32; TEMP 36–36.1; O2SAT 95–100; BMI 30.3
--- NOTE | ~2024-01-18 | US_ITS ---
EXAMINATION: US thoracentesis DATE: 01/19/2024 11:30 INDICATION: pleural effusion TECHNIQUE: The procedure and its risks, benefits, and alternatives were discussed with the patient. P otential risks discussed included bleeding, infection, and pneumothorax. The patient understood the r isks and agreed to proceed. The skin was prepped and draped in sterile fashion. 1% lidocaine was used for local anesthesia. Under ultrasound guidance, a 5 Fr catheter with trochar was advanced into the right pleural effusion. Fluid was aspirated. The catheter was removed, and a dressing was applied. Th ere were no immediate complications. FINDINGS: Ultrasound images demonstrate a right pleural effusion and the catheter within the fluid. IMPRESSION: 1. Successful ultrasound-guided thoracentesis yielding 1100 mL of lenin-colored fluid. Reviewed, dictated and finalized at location A. IMPRESSION: 1. Successful ultrasound-guided thoracentesis yielding 1100 mL of lenin-colore d fluid.
--- NOTE | ~2024-01-18 | XR_ITS ---
Clinical Indication: Shortness of breath AP and lateral views of the chest: Comparison: 12/26/2023 Findings: Moderate right pleural effusion and small left pleural effusion present. There is bibasilar pulmonary edema/atelectasis.. Cardiomediastinal silhouette is stable. Bones and soft tissues are un remarkable. Impression: Moderate right pleural effusion and small left pleural effusion with bibasilar pulmonary edema/atelec tasis. Reviewed, dictated and finalized at location . Impression: Moderate right pleural effusion and small left pleural effusion with bibasilar pulmonary edema/atelectasis.
--- NOTE | ~2024-01-18 | XR_ITS ---
EXAMINATION: [id number] DATE: 01/19/2024 11:47 INDICATION: Right pleural effusion status post thoracentesis. TECHNIQUE: A single frontal view of the chest was obtained. COMPARISON: Chest 2 views 01/18/2024 FINDINGS: There are small pleural effusions. There are airspace opacities at the lung bases. No pneum othorax. Cardiomegaly is noted. There are surgical clips in the abdomen. IMPRESSION: 1. Small pleural effusions with improvement on the right status post thoracentesis. 2. Airspace opacities at the lung bases, consistent with atelectasis versus pneumonia. 3. Cardiomegaly. Reviewed, dictated and finalized at location A. IMPRESSION: 1. Small pleural effusions with improvement on the right status post thoracente sis. 2. Airspace opacities at the lung bases, consistent with atelectasis versus pne umonia. 3. Cardiomegaly.
--- NOTE | 2024-01-18 13:21 | ECG_ITS ---
SEE SCANNED COPY FOR CONFIRMED REPORT MTDD
[2024-01-18 13:36] LABS: Basophils Percent Auto 0.3 % (0.2-1.2); Eosinophils Absolute Auto 0.1 K/mm3 (0-0.3); Hematocrit 43.1 % (42.0-52.0); Hemoglobin 14.7 g/dL (14.0-18.0); Immature Granulocyte Absolute 0.01 K/mm3 (0.00-0.031); Immature Granulocyte Percent A 0.2 % (0-0.5); Lymphocytes Absolute Auto 0.64 K/mm3 (0.9-3.2); Lymphocytes Percent Auto 10.7 % (18.3-44.2); Mean Corpuscular HGB Conc 34.1 g/dl (32-36); Mean Corpuscular Hemoglobin 34.3 pg (26-34); Mean Corpuscular Volume 100.5 fl (80-100); Mean Platelet Volume 9.7 fl (7.4-10.4); Monocytes Absolute Auto 0.6 K/mm3 (0.1-0.6); Monocytes Percent Auto 9.7 % (2.6-8.5); Neutrophils Absolute Auto 4.7 K/mm3 (1.3-6.7); Neutrophils Percent Auto 78.1 % (45.5-73.1); Platelet Count Result 150 k/mm3 (150-375); Red Blood Count 4.29 M/mm3 (4.6-6.20); Red Cell Distribution Width 13.9 % (11.5-14.5)
[2024-01-18 13:46] LABS: Alanine Aminotransferase 38 U/L (6-50); Alkaline Phosphatase 97 U/L (38-126); Anion Gap 9 mmol/L (4-12); Aspartate Amino Transferase 39 U/L (17-59); Bilirubin,Total 2.6 mg/dL (0.2-1.3); Blood Urea Nitrogen 68 mg/dL (9-20); Calcium 8.8 mg/dL (8.4-10.2); Carbon Dioxide 27 mmol/L (22-30); Chloride 102 mmol/L (98-107); Estimated CRCL calculation 17 ml/min; Estimated Glomerular Filt Rate 18; Glucose 129 mg/dL (65-110); Potassium 3.9 mmol/L (3.4-5.0); Sodium 138 mmol/L (137-145)
[2024-01-18 13:52] LABS: INR 2.2; Prothrombin Time 25.7 Seconds (11.1-14.7)
[2024-01-18 13:53] LABS: Partial Thromboplastin Time 42.8 Seconds (22.3-36.8)
[2024-01-18 14:23] LABS: NT Pro B Type Natriuretic Pept 3240 pg/mL (19.9-100); Troponin I 0.074 ng/mL (0.000-0.034)
--- NOTE | 2024-01-18 15:26 | ED.SOB ---
HPI - SOB/Dyspnea General Chief Complaint: Shortness of Breath/Dyspnea Stated Complaint: dyspnea Time Seen by Provider: 01/18/24 13:46 Source: patient Mode of arrival: wheelchair Limitations: no limitations History of Present Illness HPI Narrative: 88-year-old with a history of CKD stage 4, chronic systolic CHF with EF of 45%, atrial fibrillation on Xarelto, recurrent pleural effusion presents to the ER with complaints of shortness of breath for past few days. Patient states that he was in the hospital in the beginning of the month had fluid taken out from his lung. And states that he has been able to get deep breath. He denies any fever or chills. Denies any chest pain. Patient states that he has been taking all his medications as prescribed MD elicited complaint: shortness of breath Pertinent past history: congestive heart failure Onset (ago): day(s) Timing: constant Severity: moderate Exacerbating factors: lying flat Known history of: congestive heart failure Associated symptoms: denies other symptoms Treatment prior to arrival: none Related Data Home Medications Medication Instructions Recorded Confirmed amlodipine 5 mg tablet 5 mg PO DAILY 10/16/22 01/18/24 rivaroxaban 20 mg tablet (Xarelto) 20 mg PO DAILY 10/16/22 01/18/24 temazepam 7.5 mg capsule 7.5 mg PO QHS 10/16/22 01/18/24 vitamin E (dl, acetate) 180 mg 180 mg PO DAILY 10/16/22 01/18/24 (400 unit) capsule timolol 0.5 % eye drops 1 drp EACH EYE Q12H 06/12/23 01/18/24 ascorbic acid (vitamin C) 500 mg 500 mg PO DAILY 12/24/23 01/18/24 tablet (Vitamin C) calcium 600 mg capsule 600 mg PO DAILY 12/24/23 01/18/24 cholecalciferol (vitamin D3) 125 125 mcg PO DAILY 12/24/23 01/18/24 mcg (5,000 unit) tablet (Vitamin D3) travoprost 0.004 % eye drops 1 drp EACH EYE HS 12/24/23 01/18/24 clonidine HCl 0.1 mg tablet 0.2 mg PO Q12H 12/25/23 01/18/24 Allergies Allergy/AdvReac Type Severity Reaction Status Date / Time No Known Allergies Allergy Verified 01/18/24 13:27 Review of Systems Review of Systems: All systems reviewed & are unremarkable except as noted in HPI and below Constitutional: Constitutional: Reports no additional constitutional complaints Eyes: Eyes: Reports no additional eye complaints ENT: Reports system reviewed and no additional complaints, except as documented Cardiovascular: Cardiovascular: Reports no additional cardiovascular complaints Respiratory: Respiratory: Reports as per HPI Gastrointestinal: Gastrointestinal: Reports no additional gastrointestinal complaints Musculoskeletal: Musculoskeletal: Reports no additional musculoskeletal complaints Neurologic: Reports system reviewed and no additional complaints, except as documented Endocrine: Endocrine: Reports no additional endocrine complaints [facility] Past Medical History Medical History Chronic anticoagulation Chronic kidney disease, stage 4 (severe) Hyperlipidemia Hypertension Paroxysmal atrial fibrillation Patent foramen ovale Transient ischemic attack (2019) Echocardiogram showed evidence of a small patent foramen ovale. Surgical History Surgical History History of cholecystectomy Family History Family History Mother Brain tumor Father Lung cancer Social History Social History Social History: Healthcare power of insurance attorney: Avtar Finn. Code status: Full code. Smoking status: Never smoker Alcohol intake: never Substance use: never Do You Feel Safe in your Home?: Yes Lack of Transportation: YES Lack of Food: Never True Current Housing: I Do Not Have Housing Concerned About Future Housing: No Difficulty Paying Gas/Electric Bills: No Difficulty Paying for Meds: No Currently Unemployed: No Education: Master's Degree or
--- NOTE | 2024-01-18 17:18 | PC.NURSE ---
This patient, Roger Jacome, was admitted to [facility] Surg Room 323-02 at 1710. Patient/family oriented to hospital policies and general routines including ID bracelet, bed and alarms, visiting hours, pain management, procedures, bathroom and other care routines, personal items, smoking policy, room service/diet, and visiting hours. Information on how to activate the Rapid Response Team has been discussed. Patient/Family are encouraged to report perceived risks to care and to ask questions if they do not understand what they are told or what they should do.
--- NOTE | 2024-01-18 17:20 | PM.IMHP ---
H&P: HPI History of Present Illness Date/Time: 01/18/24 17:20 Chief Complaint: SOB Narrative: 88 y/o M presents here with shortness of breath with PMH pAfib on anticoagulation, CKD Stage 4, TIA (2019), HLD, PFO, and HTN. The patient presented here from home with shortness of breath that has been progressive over the last 2 weeks. Shortness of breath worsens with exertion and is not accompanied by cough, fever, or chills. Patient has bilateral lower extremity edema that is chronic due to amlodipine. Patient has hx of bilateral pleural effusion, right side requiring thoracentesis due to size and underlying compressive atelectasis and cardiomegaly. Done on 12/26/23, nondiagnostic, and yielded 1000 mL of clear, yellow fluid. Had echo completed during this admission which showed systolic dysfunction with mild biatrial dilation, LVEF 45-50%, moderate MR, moderate TR, and mild AR and MO. Never smoker. Hx of prostate cancer s/p prostatectomy. Family history of cancer - brain cancer (mother), lung cancer (father). Initial VS at presentation: 96.8? F, HR 93, RR 22, 166/80, and 95% on RA. ED workup showed: No leukocytosis, no anemia, INR 2.2, creatinine 3.2 and GFR 18 (similar to previous early this month), initial troponin 0.074, BNP 3240 (similar to previous done in November). CXR showed moderate right pleural effusion and small left pleural effusion with bibasilar pulmonary edema/atelectasis. Review of Systems Review of Systems: All systems reviewed & are unremarkable except as noted in HPI and below [facility] Past Medical History Medical History Bilateral pleural effusion Chronic anticoagulation Chronic kidney disease, stage 4 (severe) Hyperlipidemia Hypertension Paroxysmal atrial fibrillation Patent foramen ovale Transient ischemic attack (2019) Echocardiogram showed evidence of a small patent foramen ovale. Surgical History Surgical History History of cholecystectomy Family History Family History Mother Brain tumor Father Lung cancer Social History Social History Social History: Healthcare power of tea plantation worker: Avtar Finn. Code status: Full code. Smoking status: Never smoker Alcohol intake: never Substance use: never Do You Feel Safe in your Home?: Yes Lack of Transportation: No Lack of Food: Never True Current Housing: I Have Housing Concerned About Future Housing: Decline to Answer Difficulty Paying Gas/Electric Bills: Decline to Answer Difficulty Paying for Meds: Decline to Answer Currently Unemployed: Decline to Answer Education: Master's Degree or Higher Difficulty w/ Childcare or Family Care: No Additional living arrangements comments: Lives in [place]. 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 Spiritual care concerns: No Meds Home Medications and Allergies Home Medications Medication Instructions Recorded Confirmed Type amlodipine 5 mg tablet 5 mg PO DAILY 10/16/22 01/18/24 History rivaroxaban 20 mg tablet (Xarelto) 20 mg PO DAILY 10/16/22 01/18/24 History temazepam 7.5 mg capsule 7.5 mg PO QHS 10/16/22 01/18/24 History vitamin E (dl, acetate) 180 mg 180 mg PO DAILY 10/16/22 01/18/24 History (400 unit) capsule timolol 0.5 % eye drops 1 drp EACH EYE Q12H 06/12/23 01/18/24 History furosemide 40 mg tablet 40 mg PO QAM #90 tabs 10/09/23 01/18/24 Rx pravastatin 20 mg tablet 20 mg PO DAILY #90 tabs 11/16/23 01/18/24 Rx ascorbic acid (vitamin C) 500 mg 500 mg PO DAILY 12/24/23 01/18/24 History tablet (Vitamin C) calcium 600 mg capsule 600 mg PO DAILY 12/24/23 01/18/24 History cholecalciferol (vitamin D3) 125 125 mcg PO DAILY 12/24/23 01/18/24 History mcg (5,000 unit) tablet (Vitamin D3) travoprost 0.004
[2024-01-18 20:40] LABS: Troponin I 0.066 ng/mL (0.000-0.034)
[2024-01-18] MEDS: cloNIDine HCL 0.2 MG TABLET PO (21:39)
[2024-01-18] MEDS: TEMAZEPAM (*CRX) 7.5 MG CAPSULE PO (21:39)
[2024-01-18] MEDS: TIMOLOL MALEATE 0.5% OP SOLN 5 ML BOTTLE 1 DROP EACH EYE (21:39)
[2024-01-18] MEDS: LATANOPROST 0.005% OP SOLN 2.5 ML BTL 1 DROP EACH EYE (21:39)
[2024-01-19] VITALS: PULSE 74
[2024-01-19 04:00] VITALS: PULSE 68
[2024-01-19 05:22] VITALS: BP 165/72; PULSE 73; RESP 14; TEMP 36.2; O2SAT 95
[2024-01-19 06:49] LABS: Basophils Percent Auto 0.7 % (0.2-1.2); Eosinophils Absolute Auto 0.1 K/mm3 (0-0.3); Eosinophils Percent Auto 2.5 % (0-4.4); Hematocrit 38.6 % (42.0-52.0); Hemoglobin 12.8 g/dL (14.0-18.0); Immature Granulocyte Absolute 0.01 K/mm3 (0.00-0.031); Immature Granulocyte Percent A 0.2 % (0-0.5); Lymphocytes Absolute Auto 0.52 K/mm3 (0.9-3.2); Lymphocytes Percent Auto 11.9 % (18.3-44.2); Mean Corpuscular HGB Conc 33.2 g/dl (32-36); Mean Corpuscular Hemoglobin 33.6 pg (26-34); Mean Corpuscular Volume 101.3 fl (80-100); Mean Platelet Volume 9.9 fl (7.4-10.4); Monocytes Absolute Auto 0.5 K/mm3 (0.1-0.6); Monocytes Percent Auto 12.4 % (2.6-8.5); Neutrophils Absolute Auto 3.2 K/mm3 (1.3-6.7); Neutrophils Percent Auto 72.3 % (45.5-73.1); Platelet Count Result 137 k/mm3 (150-375); Red Blood Count 3.81 M/mm3 (4.6-6.20); Red Cell Distribution Width 13.9 % (11.5-14.5); White Blood Count 4.4 K/mm3 (4.5-10.0)
[2024-01-19 06:58] LABS: Anion Gap 7 mmol/L (4-12); Blood Urea Nitrogen 65 mg/dL (9-20); Calcium 8.2 mg/dL (8.4-10.2); Carbon Dioxide 24 mmol/L (22-30); Chloride 107 mmol/L (98-107); Estimated CRCL calculation 17 ml/min; Estimated Glomerular Filt Rate 18; Glucose 108 mg/dL (65-110); Potassium 3.6 mmol/L (3.4-5.0); Sodium 138 mmol/L (137-145)
[2024-01-19 06:59] LABS: INR 1.5; Prothrombin Time 19.4 Seconds (11.1-14.7)
[2024-01-19 07:00] LABS: Partial Thromboplastin Time 40.5 Seconds (22.3-36.8)
[2024-01-19 10:18] VITALS: O2SAT 94
[2024-01-19] MEDS: TIMOLOL MALEATE 0.5% OP SOLN 5 ML BOTTLE 1 DROP EACH EYE (11:24)
[2024-01-19] MEDS: CHOLECALCIFEROL 1,000 UNITS TABLET 5000 UNITS PO (11:24)
[2024-01-19] MEDS: VITAMIN E 400 UNIT CAPSULE PO (11:24)
[2024-01-19] MEDS: CALCIUM CARBONATE (OSCAL) 500 MG TABLET PO (11:24)
[2024-01-19] MEDS: ASCORBIC ACID 500 MG TABLET PO (11:25)
[2024-01-19] MEDS: FUROSEMIDE 40 MG TABLET PO (11:25)
[2024-01-19] MEDS: cloNIDine HCL 0.2 MG TABLET PO (11:25)
[2024-01-19] MEDS: PRAVASTATIN SODIUM 20 MG TABLET PO (11:25)
[2024-01-19] MEDS: amLODIPine BESYLATE 5 MG TABLET PO (11:25)
[2024-01-19 11:33] LABS: pH Pleural Fluid > 7.500 (7.210-7.500)
[2024-01-19 12:44] LABS: Pleural fluid source Pleural fluid
[2024-01-19 12:45] LABS: Appearance Pleural Fluid Hazy (Clear); Color Pleural Fluid Yellow (Colorless)
[2024-01-19 12:47] LABS: Nucleated Cell Pleural Fluid 192 /uL (0-1000); RBC Pleural Fluid < 2000 /uL (0-10000)
[2024-01-19 12:48] LABS: Lymphocytes Pleural Fluid 51 %; Neutrophils Pleural Fluid 4 % (0-25)
[2024-01-19 12:49] LABS: Macrophages Pleural Fluid 44 %; Other Cells Pleural Fluid 1 %
--- NOTE | 2024-01-19 13:49 | PM.DS ---
DS: Admitting Diagnosis Discharge Date 01/19/24 Admitting Diagnosis Large pleural effusion DS: Discharge Diagnosis Discharge Diagnosis (1) Bilateral pleural effusion: Code(s): J90 - Pleural effusion, not elsewhere classified Status: Acute (2) Exertional dyspnea: Code(s): R06.09 - Other forms of dyspnea Status: Acute (3) Elevated troponin: Code(s): R79.89 - Other specified abnormal findings of blood chemistry Status: Acute (4) Chronic kidney disease, stage 4 (severe): Code(s): N18.4 - Chronic kidney disease, stage 4 (severe) Status: Chronic (5) Hypertension: Code(s): I10 - Essential (primary) hypertension Status: Chronic DS: Summary Hospital Course Hospital Course: 88 y/o M presents here with shortness of breath with PMH pAfib on anticoagulation, CKD Stage 4, TIA (2019), HLD, PFO, and HTN. The patient presented here from home with shortness of breath that has been progressive over the last 2 weeks. Shortness of breath worsens with exertion and is not accompanied by cough, fever, or chills. Patient has bilateral lower extremity edema that is chronic due to amlodipine. Patient has hx of bilateral pleural effusion, right side requiring thoracentesis due to size and underlying compressive atelectasis and cardiomegaly. Done on 12/26/23, nondiagnostic, and yielded 1000 mL of clear, yellow fluid. Had echo completed during this admission which showed systolic dysfunction with mild biatrial dilation, LVEF 45-50%, moderate MR, moderate TR, and mild AR and ID.? No leukocytosis, no anemia, INR 2.2, creatinine 3.2 and GFR 18 (similar to previous early this month), initial troponin 0.074, BNP 3240 (similar to previous done in November).? CXR showed moderate right pleural effusion and small left pleural effusion with bibasilar pulmonary edema/atelectasis.Patient was admitted for thoracentesis. Patient received thoracentesis on 01/19/2024. thoracentesis yielded 1100 mL of lenin colored fluid. Differential did not show any sign of infection. Patient does have a scheduled cardiology appointment in the next 2 weeks. Advised patient to keep that appointment. Patient may need medication adjustment to help prevent recurrence of large pleural effusion. Symptoms resolved after thoracentesis. Patient feeling well and will be discharged back home. Restart Xarelto in the morning. ? Time Spent with Patient Time attestation: Total time spent providing and/or coordinating discharge services: Exam Narrative: GENERAL: Comfortable, no acute distress HENMT: moist mucous membranes EYES: EOM intact b/l NECK: no lymphadenopathy RESPIRATORY: clear to auscultation in upper and mid lung zones, distant breath sounds the bilateral lower lung zones (chronic), no increased respiratory effort CARDIO: Regular rate and rhythm, murmur present GI: soft, nontender, bowel sounds present SKIN/EXTREMITIES: no rashes,no redness or tenderness; bilateral lower extremity edema ( medication induced) NEURO: PROM intact, answers questions appropriately, A&O x4 DS: Data Data Completed and Pending Pending studies at discharge: Pending at discharge 01/18/24 18:00 Cytology [PTH] Routine Labs on day of discharge: Labs from last 24 hours 01/19/24 01/19/24 01/19/24 10:55 10:54 10:37 WBC RBC Hgb Hct MCV MCH MCHC RDW Plt Count MPV Immature Gran % (Auto) Neut % (Auto) Lymph % (Auto) [place] % (Auto) Eos % (Auto) Baso % (Auto) Lymph # (Auto) [place] # (Auto) Eos # (Auto) Baso # (Auto) Abs Immat Gran (auto) Absolute Neuts (auto) Absolute Nucleated RBC Nucleated RBC % PT INR APTT Sodium Potassium Chloride Carbon Dioxide Anion Gap BUN Creatinine Estim Creat Clear Calc Estimated GFR Glucose Calcium Troponin I NT-Pro-B Natriuret Pep Pleural Fluid Source Pleural fluid Pleura
[2024-01-26 21:19] LABS: Albumin Pleural Fluid 1.3 g/dL; Amylase, Pleural Fluid 58 U/L; Glucose Pleural Fluid 121 mg/dL; LDH Pleural Fluid 69 U/L; Total Protein Pleural Fluid <3.0 g/dL
== END 2024-01-19 16:50 | disposition home or self-care (01) | DRG 292 ==
LOC: ANHED 15:47 → ANH3MEDSUR 16:49
PROVIDERS: Student in an Organized Health Care Education/Training Program; Admitting Provider Internal Medicine; Emergency Provider Family Medicine; PCP Family Medicine; Visit Provider Internal Medicine
DX: I13.0 Hypertensive heart and chronic kidney disease with heart failure and stage 1 through stage 4 chronic kidney disease, or unspecified chronic kidney disease (principal); I48.20 Chronic atrial fibrillation, unspecified; I50.22 Chronic systolic (congestive) heart failure; J90 Pleural effusion, not elsewhere classified; N18.4 Chronic kidney disease, stage 4 (severe); Q21.12 Patent foramen ovale; Z79.01 Long term (current) use of anticoagulants
CPT/HCPCS: 32555; 36415; 71046; 80048; 80053; 82042; 82150; 82945; 83615; 83880; 83986; 84157; 84311; 84478; 84484; 85025; 85610; 85730; 87070; 87075; 87102; 87205; 87206; 88108; 88305; 89051; 93005; 99285; A9270

== ENCOUNTER 2024-09-23 19:26 | Emergency (ER) | payer MEDICARE, SELFPAY ==
--- NOTE | ~2024-09-23 | XR_ITS ---
EXAMINATION: XR chest 2V DATE: 09/23/2024 21:30 INDICATION: Shortness of breath. TECHNIQUE: Frontal and lateral views of the chest were obtained. COMPARISON: Chest single view 01/19/2024, chest CT 12/24/2023 FINDINGS: There are small pleural effusions. There are airspace opacities at the lung bases. No pneum othorax. Cardiomegaly is noted. 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 IMPRESSION: 1. Small pleural effusions. 2. Airspace opacities at the lung bases, likely atelectasis. 3. Cardiomegaly. Reviewed, dictated and finalized at location A. RITIES TELLER
[2024-09-23 19:28] VITALS: BP 176/71; PULSE 79; RESP 20; TEMP 35.8; O2SAT 100
--- OUTSIDE RECORDS SUMMARY | 2024-09-23 19:28 | XMS_ITS | Encounter Summary ---
Author Organization [facility] Address [address] [place] [address]. [place] [address] [place] [address] Care Team Providers Care Envelope Sealing Machine Operator Name Role Phone Adalid Woo MD Unavailable [facility] Connor Prieto MD Unavailable [phone] Dino Payne MD Primary Care Provider [phone] Encounter Details Date Type Department Care Team (Late st Contact Info) Description 08/21/2023 Abstract [facility] [address] [place] [id number] Adalid Woo MD Social History Tobacco Use Types Packs/Day Years Used Date Smoking Tobacco: Never Smokeless Tobacco: Never Alcohol Use Standard Drinks/Week Comments No 0 (1 standard drink = 0.6 oz pur e alcohol) Sex and Gender Information Value Date Recorded Sex Assigned at Not on file Legal Sex Male 10:51 PM CDT Gender Identity Not on file Sexual Orientation Not on file 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
--- OUTSIDE RECORDS SUMMARY | 2024-09-23 19:28 | XMS_ITS | Encounter Summary ---
Author Organization [facility] Address [address] [place] [address]. [place] [address] [place] [address] Care Team Providers Care Payroll Supervisor Name Role Phone Truman Payne MD Primary Care Provider [phone] Adalid Woo MD Unavailable [facility] Joseph Baltazar MD Primary Care Provider [phone] Connor Correa MD Unavailable [phone] Dino Payne MD Primary Care Provider [phone] Encounter Details Date Type Department Care Team (Late st Contact Info) Description 11/13/2018 Abstract [facility] [address] [place] [address] Abstract, Doc [facility] Social History Tobacco Use Types Packs/Day Years [...] 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 Not on file Not on file documented as of this encounter Plan of Treatment Not on file documented as of this encounter Visit Diagnoses Not on filedocumented in this encounter Care Teams Payroll Supervisor Relationship Specialty Start Date End Date Truman Payne [place] [address] PCP - General FAMILY PRACTICE 07/10/16 04/14/20 Joseph Baltazar MD [address] [place] [address] PCP - General [facility] 04/15/20 07/25/23 [place] [address] [id number] PCP - General FAMILY PRACTICE 07/26/23 [place] [address] [place] Agronomy Instructor CARDIOVASCULAR DISEASE 09/17/18 04/09/24 Connor Correa MD [address] [place] [phone] Consulting Physician VASCULAR SURGERY 12/30/20 documented as of this encounter
--- OUTSIDE RECORDS SUMMARY | 2024-09-23 19:28 | XMS_ITS | Clinical Summary ---
Author Organization [facility] Address [address], [place] [address] Phone Care Team Providers Care Cbx Operator Name Role Phone Giovanny Joseph Primary Care Provider [phone] Allergies No known active allergies Medications Medication Sig Dispensed Refills Start Date End Date Status Ascorbic Acid (vitamin C) 250 MG tablet Take 250 mg by mouth daily Active Lumigan 0.01 % ophthalmic drops INSTILL 1 DROP INTO BOTH EYES EVERY NIGHT DIRECTED 08/28/2020 Active calcium citrate-vitamin D (CITRACAL+D) 315-200 MG-UNIT per tablet Take by mouth Act elsa chlorthalidone (HYGROTON) 25 MG tablet Take 25 mg by mouth 1 (one) time each day 09/06/2020 Active cloNIDine (CATAPRES) 0.1 MG tablet Take 0.1 mg by mouth 2 (two) times a day 09/06/2020 Active Betimol 0.5 % ophthalmic solution INSTILL 1 DROP INTO BOTH EYES EVERY DAY DIRECTED 10/09/2020 Active alpha tocopherol (VITAMIN E) 1000 units capsule Take 1,000 Units by mouth daily Active temazepam (RESTORIL) 7.5 MG capsule 12/25/2020 Active olmesartan (BENICAR) 40 MG tablet Take 40 mg by mouth 1 (one) time each day 02/01/2021 Active traZODone (DESYREL) 50 MG tablet 02/24/2021 Active amLODIPine (NORVASC) 5 MG tablet 06/09/2021 Active Xarelto 20 MG tablet TAKE 1 TABLET (20 MG TOTAL) BY MOUTH DAILY WITH SUPPER. 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 16 Immunizations Name Administration Dates Next Due Influenza TIV (IM) 05/31/2022,07/01/2021 Pneumococcal Conjugate 09/25/2012 Pneumococcal Conjugate 13-Valent 10/05/2017 Family History Medical History Relation Comments Kidney disease Neg Hx Social History Tobacco Use Types Packs/Day Years Used Date Smoking Tobacco: Never Smokeless Tobacco: Never Alcohol Use Standard Drinks/Week Comments Not Currently 0 (1 standard drink = 0.6 oz pur e alcohol) Sex and Gender Information Value Date Recorded Sex Assigned at Not on file Gender Identity Not on file Sexual Orientation Not on file Last Filed Vital Signs Vital Sign Reading Time Taken Comments Blood Pressure 130/80 06/14/2022 2:54 PM CDT Pulse 60 06/14/2022 2:54 PM CDT Temperature 35.9 ??C (96.7 ??F) 06/14/2022 2:54 PM CD T Respiratory Rate - - Oxygen Saturation - - Inhaled Oxygen Concentration - - Weight 86.2 kg (190 lb) 06/14/2022 2:54 PM CDT Height 180.3 cm (5' 11 ) 06/14/2022 2:54 PM CDT Body Mass Index 26.5 06/14/2022 2:54 PM CDT Plan of Treatment Health Maintenance Due Date Last Done Comments Pneumococcal PPSV23/PCV13 65 + Years / High and Highest Risk (2 of 4 - PPSV23 or PCV20) 11/30/2017 10/05/2017 Influenza Vaccine (#1) 2024 05/31/2022, 2020 Care Teams Cbx Operator Relationship Specialty Start Date End Date Joseph Baltazar PCP - General Family Medicine 12/30/20
--- OUTSIDE RECORDS SUMMARY | 2024-09-23 19:28 | XMS_ITS | Patient Health Summary ---
Author Organization [facility] Address [address] [place] [address] Care Team Providers Care Contact Acid Plant Operator Name Role Phone Esteban Sands MD Primary Care Provider [phone] Note from [facility],non-owned Affiliates and Associated Physician Practices is amultiple site organization consisting of ambulatory clinics and hospital sitesin [place], [place], [place] and [place]. This disclosure is being madepursuant to the Care Everywhere program and may not contain all information available regarding this patient. Last updated 18.[facility] Allergies No known active allergies Medications * Be aware that medications may not be up to date on this document. Alwaysverify current medications with the patient. * amLODIPine (NORVASC) 10 MG tablet(Started 05/13/2020) Take 10 mg by mouth once daily * ascorbic acid (VITAMIN C) 250 MG tablet Take 250 mg by mouth * simvastatin (ZOCOR) 20 MG tablet(Started 12/15/2019) TAKE 1 TABLET BY MOUTH NIGHTLY AT BEDTIME * cloNIDine (CATAPRES) 0.1 MG tablet(Started 09/06/2020) Take 0.1 mg by mouth 2 times daily * aspirin-dipyridamole CR 12hr (AGGRENOX) 25-200 MG capsule(Started 11/02/2020) Take 1 capsule by mouth once daily * bimatoprost (LUMIGAN) 0.01 % ophth solution(Started 08/28/2020) Instill 1 drop into both eyes every evening * calcium citrate-vitamin D (CITRACAL PLUS D) 315-200 MG-UNIT tablet Take 1 tablet by mouth 2 times daily * chlorthalidone (HYGROTON) 25 MG tablet(Started 09/06/2020) Take 25 mg by mouth once daily * timolol as hemihydrate (BETIMOL) 0.5 % ophthalmic solution(Started 10/09/2020) Instill 1 drop into both eyes every morning * vitamin E (TOCOPHERYL) 1000 UNIT capsule Take 1,000 Units by mouth once daily * zaleplon (SONATA) 10 MG capsule(Started 09/23/2020) Take 10 mg by mouth at bedtime * docusate sodium (COLACE) 100 MG capsule(Started 01/05/2021) Take 1 (one) capsule by mouth 2 times daily as needed for Constipation (relief of difficult bowel movements) * magnesium hydroxide (MILK OF MAGNESIA) 400 MG/5ML suspension(Started 01/05/2021) Take 15 mL by mouth as needed for Constipation * diphenhydrAMINE (BENADRYL) 25 MG tablet(Started 01/05/2021) Take 1 (one) tablet by mouth every 6 hours as needed for Itching * traMADol (ULTRAM) 50 MG tablet(Started 01/05/2021) Take 1 (one) tablet by mouth every 4 hours as needed for Pain Active Problems Problem Noted Date Diagnosed Date 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 Resolved Problems Problem Noted Date Diagnosed Date Resolved Date 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, not on chronic dialysis 12/09/2020 12/09/2020 Social History Tobacco Use Types Packs/Day Years Used Date Smoking Tobacco: Never Smokeless Tobacco: Never Alcohol Use Standard Drinks/Week Comments Never 0 (1 standard drink = 0.6 oz pur e alcohol) Sex and Gender Information Value Date Recorded Sex Assigned at Not on file Gender Identity Not on file Sexual Orientation Not on file Last Filed Vital Signs Vital Sign Reading Time Taken Comments Blood Pressure 104/63 02/10/2021 8:46 AM CDT Pulse 55 02/10/2021 8:46 AM CDT Temperature 36.2 ??C (97.1 ??F) 02/10/2021 8:46 AM CD T Respiratory Rate 20 01/27/2021 11:14 AM CDT Oxygen Saturation 96% 01/05/2021 1:21 PM CDT Inhaled Oxygen Concentration - - Weight 83 kg (183 lb) 02/10/2021 8:46 AM CDT Height 177.8 cm (5' 10 ) 02/10/2021 8:46 AM CDT Body Mass Index 26.26 02/10/2021 8:46 AM CDT Procedures * VAS DIALYSIS EXIST ACCESS SCAN(Performed 02/10/2021) Performed for ESRD needing dialysis (HCC) * CARDIAC RHYTHM STRIP ORDER(Performed 01/07/2021) * CREATION ARTERIOVENOUS (AV) FISTULA WITH/WITHOUT GRAFT(Performed 01/05/2021) Performed for Diagnosis unknown * CBC W AUTO DIFFERENTIAL(Performed 01/05/2021) * BASIC METABOLIC PANEL (CALCIUM TOTAL)(Performed 01/05/2021) * VAS BILAT MAPPING FOR HEMODIALYSIS(Performed 01/03/2021) Performed for ESRD needing dialysis (HCC) Results * VAS DIALYSIS EXIST ACCESS SCAN (02/10/2021 8:36 AM CDT) Anatomical Region Laterality Modality Lower Extremity Ultrasound 02/10/2021 8:04 AM CDT Narrative Procedure Note Dexter Contreras MD - 02/10/[address] [id number] Hemodialysis Graft Report Pat.Name: JONY JACOME Pat.ID: [id number] .Date: 02/10/2021 Refer.MD: Connor Correa Exam Time: 8:04:00 AM Study Type:Hemodialysis Graft Age: 2 1935,85Y Sex: MALE Sonogrphr: Renée Alcaraz RVT Pat. Stat.:Outpatient ICD - 9: N18.6 CPT - 4: 32465 Reason for Study: AV Fistula Evaluation Procedures: AV Fistula Evaluation Race: 1 Visit ID: [id number] ++++++++++++++++++++++++++++++++++++ SUMMARY: ++++++++++++++++++++++++++++++++++++ The brachio-cephalic arterio-venous fistula of the left upper arm is patent without evidence of stenosis or aneurysm. ++++++++++++++++++++++++++++++++++++ FINDINGS: ++++++++++++++++++++++++++++++++++++ Procedure: B-mode imaging, color flow Doppler and spectral analysis were used to evaluate the AV fistula in the forearm of the left upper extremity. Study Quality: This study is of adequate technical quality. Dialysis UE: There is a patent AV fistula involving the Rt cephalic vein and the brachial artery. ++++++++++++++++++++++++++++++++++++ MEASUREMENTS: ++++++++++++++++++++++++++++++++++++ GRAFT Left Anas Bryan Brachiocephalic:AV Fistula Anas Bryan PSV 266 cm/s Anas Bryan Dim 0.27 cm Anas Bryan EDV 155 cm/s Left Dis to Art Anas Brachiocephalic:AV Fistula Dis to AAnas PS 26 cm/s Left Dist Vein Bryan Brachiocephalic:AV Fistula Dist Vein Bryan P 201 cm/s Dist Vein Bryan D 0.29 cm Dist Vein Bryan E 101 cm/s Left Dist Vein Bryan 2 Brachiocephalic:AV Fistula Dist Vein Bryan 2 462 cm/s Dist Vein Bryan 2 0.52 cm Dist Vein Bryan 2 254 cm/s Left Inflow Brachiocephalic:AV Fistula Mary Anne Vessel PSV 219 cm/s Mary Anne Vessel EDV 128 cm/s Left Mid Vein Bryan Brachiocephalic:AV Fistula Mid Vein Bryan PS 74 cm/s Mid Vein Bryan Di 0.62 cm Mid Vein Bryan ED 38 cm/s Left Prox Vein Bryan 2 Brachiocephalic:AV Fistula Prox Vein Bryan 2 251 cm/s Prox Vein Bryan 2 0.46 cm Prox Vein Bryan 2 151 cm/s Left Prox Vein Bryan 3 Brachiocephalic:AV Fistula Prox Vein Bryan 3 93 cm/s Prox Vein Bryan 3 0.64 cm Prox Vein Bryan 3 59 cm/s Left Prx to Gunnar anast Brachiocephalic:AV Fistula Prx to Gunnar anas 70 cm/s Left Gunnar anast Brachiocephalic:AV Fistula Gunnar anast PSV 50 cm/s Gunnar anast Dim 0.43 cm Left Dist Brachial Brachiocephalic:AV Fistula Dist Brachial P 26 cm/s Left Dist Radial Brachiocephalic:AV Fistula Dist Radial PSV 45 cm/s Signed 02/10/2021 05:19 PM Dexter Contreras MD Connor Correa MD VASCULAR LAB ORDER PHANI * CARDIAC RHYTHM STRIP ORDER (01/07/2021 9:07 PM CDT) Narrative 01/07/2021 9:07 PM CDT Ordered by an unspecified provider. Scanned Document CARDIAC SERVICES ORD ERABLES * (ABNORMAL) CBC W AUTO DIFFERENTIAL (01/05/2021 8:13 AM CDT) WBC 5.4 4.4 - 10.7 x10E9/L 01/05/2021 8:30 AM CDT [facility] WBC Corrected 01/05/2021 8:30 AM CDT [facility] RBC 4.10 3.80 - 5.40 x10E12/L 01/05/2021 8:30 AM CDT [facility] Hemoglobin 14.1 12.0 - 17.6 gm/dL 01/05/2021 8:30 AM CDT [facility] Hematocrit 41.5 35.2 - 51.7 % 01/05/2021 8:30 AM CDT [facility] MCV 101.2(H) 80.7 - 98.3 fl 01/05/2021 8:30 AM CDT [facility] MCH 34.4(H) 26.7 - 34.0 pg 01/05/2021 8:30 AM CDT [facility] MCHC 34.0 30.8 - 35.9 gm/dL 01/05/2021 8:30 AM CDT [facility] Platelet Count 165 153 - 416 x10E9/L 01/05/2021 8:30 AM CDT [facility] RDW-CV 12.4 12.1 - 14.9 % 01/05/2021 8:30 AM CDT [facility] MPV 9.7 9.4 - 12.9 fl 01/05/2021 8:30 AM CDT [facility] Neutrophils % 71.0 44.0 - 73.0 % 01/05/2021 8:30 AM CDT [facility] Lymphocytes % 15.2(L) 20.0 - 43.0 % 01/05/2021 8:30 AM CDT [facility] Monocytes % 11.7 5.0 - 13.0 % 01/05/2021 8:30 AM CDT [facility] Eosinophils % 1.5 0.0 - 6.0 % 01/05/2021 8:30 AM CDT [facility] Basophils % 0.4 0.0 - 2.0 % 01/05/2021 8:30 AM CDT [facility] Immature Granulocytes 0.2 0 - 1 % 01/05/2021 8:30 AM CDT [facility] Neutrophil Absolute 3.84 2.01 - 7.14 x10E9/L 01/05/2021 8:30 AM CDT [facility] Lymphocytes Absolute 0.82(L) 1.07 - 3.94 x10E9/L 01/05/2021 8:30 AM CDT [facility] Monocytes Absolute 0.63 0.26 - 1.07 x10E9/L 01/05/2021 8:30 AM CDT [facility] Eosinophils Absolute 0.08 0 - 0.47 x10E9/L 01/05/2021 8:30 AM CDT [facility] Basophils Absolute 0.02 0 - 0.08 x10E9/L 01/05/2021 8:30 AM T [facility] Immature Granulocytes Absolute 0.01 0.00 - 0.06 x10E9/L 01/05/2021 8:30 AM CDT [facility] nRBC Auto 0 /100 WBC 01/05/2021 8:30 AM T [facility] Blood BLOOD SPECIMEN / Unknown Venipuncture / Unknown 01/05/2021 8:13 AM CDT 01/05/2021 8:20 AM CDT Connor Correa MD LAB - HEMATOLOGY O RDERABLES [facility] [address] [place] [address] * (ABNORMAL) BASIC METABOLIC PANEL (CALCIUM TOTAL) (01/05/2021 8:13 AM CDT) [facility] Signature Glucose 111(H) 70 - 105 mg/dL 01/05/2021 8:42 AM CDT [facility] Sodium 141 136 - 145 mmol/L 01/05/2021 8:42 AM CDT [facility] Potassium 3.5 3.5 - 5.1 mmol/L 01/05/2021 8:42 AM CDT [facility] Chloride 102 98 - 107 mmol/L 01/05/2021 8:42 AM CDT [facility] CO2 26 23 - 31 mmol/L 01/05/2021 8:42 AM CDT [facility] Calcium 9.4 8.4 - 10.4 mg/dL 01/05/2021 8:42 AM CDT [facility] Anion Gap 13 8 - 18 mmol/L 01/05/2021 8:42 AM CDT [facility] Comment:Attention clinician: Reference Range change. BUN 76(H) 8.4 - 25.7 mg/dL 01/05/2021 8:42 AM CDT [facility] Creatinine 3.26(H) 0.72 - 1.25 mg/dL 01/05/2021 8:42 AM CDT [facility] eGFR by MDRD 18 mL/min/1.7 3m2 01/05/2021 8:42 AM CDT [facility] eGFR by MDRD 22 mL/min/1.7 3m2 01/05/2021 8:42 AM CDT [facility] Blood BLOOD SPECIMEN / Unknown Venipuncture / Unknown 01/05/2021 8:13 AM CDT 01/05/2021 8:20 AM CDT Connor Correa MD LAB - CHEMISTRY OR DERABLES [facility] [address] [place] [address] * VAS BILAT MAPPING FOR HEMODIALYSIS (01/03/2021 2:32 PM CDT) Anatomical Region Laterality Modality Lower Extremity, Upper Extremity Intravascular Ultrasound 01/03/2021 1:03 PM CDT Narrative Procedure Note Avtar Laboy MD - 01/05/2021 Connor Correa MD VASCULAR LAB ORDER PHANI Care Teams Contact Acid Plant Operator Relationship Specialty Start Date End Date Esteban Sands MD [address] [place] [address] [place] [address] PCP - General 11/19/20
--- OUTSIDE RECORDS SUMMARY | 2024-09-23 19:28 | XMS_ITS | Clinical Summary ---
Author Organization [facility] Address [address] [place] [address]. [place] [address] [place] [address] Care Team Providers Care Gas Plant Operator Name Role Phone Connor Correa MD Unavailable [phone] Dino Payne MD Primary Care Provider [phone] Allergies No known active allergies Medications chlorthalidone 25 MG tablet Take 1 tablet (25 mg total) by mouth daily. 30 tablet 5 1 Active temazepam 7.5 MG capsule Take 1 capsule (7.5 mg total) by mouth nightly at bedtime. 1 Active Ascorbic Acid (VITAMIN C) 500 MG Cap Take 1 capsule by mouth daily. Active vitamin E 180 MG (400 UNIT) capsule Take 1 capsule (400 Units total) by mouth daily. Active timolol 0.5 % ophthalmic solution INSTILL 1 DROP INTO BOTH EYES EVERY MORNING DIRECTED 2 Active pravastatin 20 MG tablet Take 1 tablet (20 mg total) by mouth nightly at bedtime. 2 Active Calcium Carb-Cholecalci ferol (CALCIUM CARBONATE-VITAM IN D) 600-400 MG-UNIT tablet Take 1 tablet by mouth daily. Active XARELTO 20 MG Tab tablet TAKE 1 TABLET (20 MG TOTAL) BY MOUTH DAILY WITH SUPPER. TAKE WITH FOOD 90 tablet 3 3 Active travoprost, TRAVATAN Z, (TRAVATAN Z) 0.004 % opthalamic solution Place 1 drop into both eyes nightly at bedtime. 3 Active amLODIPine (NORVASC) 2.5 MG tablet Take 1 tablet (2.5 mg total) by mouth daily. 90 tablet 3 3 Active Additional Information Patient taking differently: 5 mgOral Daily,Indications: increased per PCP on 08/21, Reported on 08/21/2023 cloNIDine (CATAPRES) 0.1 MG tablet Take 2 tablets (0.2 mg total) by mouth 2 (two) times daily. 120 tablet 11 3 Active Active Problems Problem Noted Date Diagnosed Date CKD (chronic kidney disease) , symptom management only, unspecified stage 09/02/2023 Atrial flutter, unspecified type ([facility]) 03/28/2021 Atrial fibrillation ([facility]) 03/08/2021 PFO (patent foramen ovale) ([facility]) 11/01/2019 Onychomycosis 01/10/2018 Class 1 obesity with body ma ss index (BMI) of 30.0 to 30.9 in adult 07/31/2017 Pure hypercholesterolemia 07/31/2017 Thoracic aortic aneurysm without rupture 017 Nonrheumatic aortic valve insufficiency 08/11/20 16 Essential hypertension 08/11/2016 Transient cerebral ischemic attack, unspecified 08/11/2016 Atrial septal defect ([facility]) 08/11/2016 HLD (hyperlipidemia) Resolved Problems Problem Noted Date Diagnosed Date Resolved Date Palpitations 08/11/2016 08/11/2016 Encounter for preventive health examination 10/14/2013 05/07/2020 Immunizations Name Administration Dates Next Due Fluzone High Dose - >Age 65 (Prefilled Syringe) 06/04/2023,05/31/2022,05/31/2021,2019,06/18/2019 Hepatitis B Vac Recomb Adj 2 0 Mcg/0.5ml Im Sosy 01/10/2023,12/11/2022 Influenza (Generic) 05/31/2022,07/01/2021 Pneumococcal (Pneumovax 23) 02/02/2022, 8 Pneumococcal (Prevnar 7) 09/25/2012 Family History Medical History Relation Comments Heart Attack Sister Relation Status Comments Father (Age 85) Mother (Age 77) Sister (Age 83) Social History Tobacco Use Types Packs/Day Years Used Date Smoking Tobacco: Never Smokeless Tobacco: Never Tobacco Cessation:Counseling Given: Not Answered Alcohol Use Standard Drinks/Week Comments No 0 (1 standard drink = 0.6 oz pur e alcohol) Sex and Gender Information Value Date Recorded Sex Assigned at Not on file Legal Sex Male 10:51 PM CDT Gender Identity Not on file Sexual Orientation Not on file 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 Not on file Not on file Last Filed Vital Signs Vital Sign Reading Time Taken Comments Blood Pressure 144/72 07/25/2023 3:00 PM FLOUR MIXER Pulse 80 07/25/2023 3:00 PM FLOUR MIXER Temperature 36.3 ??C (97.4 ??F) 01/29/2020 2:33 PM CD T Respiratory Rate 18 07/25/2023 3:00 PM FLOUR MIXER Oxygen Saturation 99% 07/25/2023 3:00 PM FLOUR MIXER Inhaled Oxygen Concentration - - Weight 88.5 kg (195 lb) 07/25/2023 3:00 PM FLOUR MIXER Height 179.1 cm (5' 10.5 ) 07/25/2023 3:00 PM CS T Body Mass Index 27.58 07/25/2023 3:00 PM FLOUR MIXER Plan of Treatment Health Maintenance Due Date Last Done Comments ASCVD Statin 1934 DTaP, Tdap and Td Vaccines (1 - Tdap) 1953 Zoster Vaccines (1 of 2) 1984 Annual Medicare Wellness Visit 1999 RSV Immunization or 60+ Years (1 - 1-dose 75+ series) 2009 Pneumococcal Vaccine: 65+ Years (2 of 2 - PCV) 02/02/2023 02/02/2022, 10/05/2017, 09/25/2012 ASCVD LDL 02/17/2024 02/16/2023, 03/0 04/2016, 10/28/2014 COVID-19 Vaccine ( season) 2024 06/04/2023, 07/12/2022, 12/28/2021, Additional history exists Influenza Adult (#1) 2024 06/04/2023, 05/31/2022, 05/31/2022, Additional history exists Meningococcal B Vaccine Aged Out No l onger eligible based on patient's age to complete this topic Meningococcal Vaccine Aged Out No yue dale eligible based on patient's age to complete this topic RSV Immunizations Under 20 Months Aged Out No longer eligible based on patient's age to complete this topic Procedures Procedure Name Priority Date/Time Associated Diagnosis Comments LIPID PANEL Routine 02/16/2023 from Last 3 Months or Most Recently Relevant to Health Maintenance Results * LIPID PANEL (02/16/2023) CHOLESTEROL 157 100 - 199 HDL 53 >39 TRIGLYCERIDES 81 0 - 149 LDL (CALCULATED) 89 0 - 99 VLDL CALCULATION 15 5 - 40 02/16/2023 Joseph Baltazar MD LABORATORY Final Result from Last 3 Months or Most Recently Relevant to Health Maintenance Insurance MEDICARE AETNA Care Teams Gas Plant Operator Relationship Specialty Start Date End Date Dino Payne MD [address] [place] [address] PCP - General FAMILY PRACTICE 07/26/23 Connor Correa MD Consulting Physician VASCULAR SURGERY 12/30/20
--- OUTSIDE RECORDS SUMMARY | 2024-09-23 19:28 | XMS_ITS | Clinical Summary ---
Author Organization [facility] Address [address] [facility] [place] [address] Care Team Providers Care Manager Finance Name Role Phone Esteban Sands MD Primary Care Provider [phone] Source Comments [facility],non-owned Affiliates and Associated Physician Practices is amultiple site organization consisting of ambulatory clinics and hospital sitesin [place], [place], [place] and [place]. This disclosure is being madepursuant to the Care Everywhere program and may not contain all information available regarding this patient. Last updated 18.[facility] Allergies No known active allergies Medications * Be aware that medications may not be up to date on this document. Always verify current medications with the patient. Medication Sig Dispensed Refills Start Date End Date Status amLODIPine (NORVASC) 10 MG tablet Take 10 mg by mouth once daily 05/13/2020 Active ascorbic acid (VITAMIN C) 250 MG tablet Take 250 mg by mouth Active simvastatin (ZOCOR) 20 MG tablet TAKE 1 TABLET BY MOUTH NIGHTLY AT BEDTIME 12/15/2019 Active cloNIDine (CATAPRES) 0.1 MG tablet Take 0.1 mg by mouth 2 times daily 09/06/2020 Active aspirin-dipyridamol e CR 12hr (AGGRENOX) 25-200 MG capsule Take 1 capsule by mouth once daily 11/02/2020 Active bimatoprost (LUMIGAN) 0.01 % ophth solution Instill 1 drop into both eyes every evening 08/28/2020 Active calcium citrate-vitamin D (CITRACAL PLUS D) 315-200 MG-UNIT tablet Take 1 tablet by mouth 2 times daily Active chlorthalidone (HYGROTON) 25 MG tablet Take 25 mg by mouth once daily 09/06/2020 Active timolol as hemihydrate (BETIMOL) 0.5 % ophthalmic solution Instill 1 drop into both eyes every morning 10/09/2020 Active vitamin E (TOCOPHERYL) 1000 UNIT capsule Take 1,000 Units by mouth once daily Active zaleplon (SONATA) 10 MG capsule Take 10 mg by mouth at bedtime 09/23/2020 Active docusate sodium (COLACE) 100 MG capsule Take 1 (one) capsule by mouth 2 times daily as needed for Constipation (relief of difficult bowel movements) 01/05/2021 Active Additional Information Patient not taking.Reported on 02/10/2021 magnesium hydroxide (MILK OF MAGNESIA) 400 MG/5ML suspension Take 15 mL by mouth as needed for Constipation 01/05/2021 Active Additional Information Patient not taking.Reported on 02/10/2021 diphenhydrAMINE (BENADRYL) 25 MG tablet Take 1 (one) tablet by mouth every 6 hours as needed for Itching 01/05/2021 Active Additional Information Patient not taking.Reported on 02/10/2021 traMADol (ULTRAM) 50 MG tablet Take 1 (one) tablet by mouth every 4 hours as needed for Pain 20 tablet 01/05/2021 Active Additional Information Patient not taking.Reported on 02/10/2021 Active Problems Problem Noted Date Diagnosed Date [...] Mass Index 26.26 02/10/2021 8:46 AM CDT Plan of Treatment Health Maintenance Due Date Last Done Comments DTAP/TDAP/TD VACCINES (1 - Tdap) 1954 PNEUMOCOCCAL VACCINE 50+ (1 of 1 - PCV) 1984 ZOSTER VACCINE (1 of 2) 1984 Respiratory Syncytial Virus (RSV) Vaccine Pt: or over 60 yrs (1 - 1-dose 75+ series) 2009 COVID-19 VACCINE ( - 2023-2 5 season) 2024 INFLUENZA VACCINE (#1) 2024 DEPRESSION SCREENING 08/27/2024 HEPATITIS B VACCINE Aged Out No longe r eligible based on patient's age to complete this topic HIB VACCINE Aged Out No longer eligi ble based on patient's age to complete this topic HPV VACCINE Aged Out No longer eligi ble based on patient's age to complete this topic MENINGOCOCCAL (Group B) VACCINE Aged Out No longer eligible based on patient's age to complete this topic MENINGOCOCCAL VACCINE Aged Out No yue dale eligible based on patient's age to complete this topic Care Teams Manager Finance Relationship Specialty Start Date End Date Esteban Sands MD [address] [place] [address] [address] [place] [address] PCP - General 11/19/20
--- OUTSIDE RECORDS SUMMARY | 2024-09-23 19:28 | XMS_ITS | Encounter Summary ---
Author Organization [facility] Address [address] [place] [address]. [place] [address] [place] [address] Care Team Providers Care Yarn Winder Name Role Phone Truman Payne MD Primary Care Provider [phone] Hema Louie MD Unavailable Unavailable Quang Montemayor MD Unavailable Unavailab Adalid Bland MD Unavailable UnavailJoseph Szymanski MD Primary Care Provider [phone] Connor Correa MD Unavailable + [phone] Dino Payne MD Primary Care Provider [phone] Encounter Details Date Type Department Care Team (Late st Contact Info) Description 08/12/2015 Abstract [facility] [address] [place] [id number] Dante Verma MD [address] [place] [address] Social History Tobacco Use Types Packs/Day Years Used Date Smoking Tobacco: Never Alcohol Use Standard Drinks/Week Comments No 0 (1 standard drink = 0.6 oz pur e alcohol) Sex and Gender Information Value Date Recorded Sex Assigned at Not on file Legal Sex Male 10:51 PM CDT Gender Identity Not on file Sexual Orientation Not on file 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 04/15/20 07/25/23 [place] [address] PCP - [facility] 07/26/23 [place] [address] CARDIOVASCULAR DISEASE 07/10/16 03/12/18 [place] [address] [place] [employer] Machine Operator INTERVENTIONAL CARDIOLOGY 03/13/18 09/16/18 [place] [address] [employer] Machine Operator CARDIOVASCULAR DISEASE 09/17/18 04/09/24 [place] [address] Consulting Physician VASCULAR SURGERY 12/30/20 documented as of this encounter
--- OUTSIDE RECORDS SUMMARY | 2024-09-23 19:28 | XMS_ITS | Encounter Summary ---
Author Organization [facility] Address [address] [place] [address]. 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 file Not on file documented as of this encounter Plan of Treatment Not on file documented as of this encounter Procedures Procedure Name Priority Date/Time Associated Diagnosis Comments CMP (ABSTRACTED LAB) Routine 02/16/2023 LIPID PANEL Routine 02/16/2023 documented in this encounter Results * (ABNORMAL) CMP (ABSTRACTED LAB) (02/16/2023) SODIUM S/P/B 142 134 - 144 POTASSIUM S/P/B 4.2 3.5 - 5.2 CHLORIDE S/P/B 101 96 - 106 CO2 24 20 - 29 BUN 58 8 - 27 CREATININE S/P/B 3.06(A) 0.76 - 1.27 CALCIUM S/P/B 9.2 8.6 - 10.2 GLUCOSE 102 70 - 99 mg/dL TOTAL PROTEIN S/P/B 7.1 6.0 - 8.5 ALBUMIN S/P/B 4.0 3.6 - 4.6 AST 22 0 - 40 ALT 18 0 - 44 ALKALINE PHOSPHATASE S/P/B 79 44 - 121 BILIRUBIN TOTAL S/P/B 2.1 0.0 - 1.2 02/16/2023 Joseph Baltazar MD LAB-OUTSIDE/ABSTRACTED Final Result * LIPID PANEL (02/16/2023) CHOLESTEROL 157 100 - 199 HDL 53 >39 TRIGLYCERIDES 81 0 - 149 LDL (CALCULATED) 89 0 - 99 VLDL CALCULATION 15 5 - 40 02/16/2023 Joseph Baltazar MD LABORATORY Final Result documented in this encounter Visit Diagnoses Not on filedocumented in this encounter Care Teams Records Supervisor Relationship Specialty Start Date End Date [place] [address] PCP - General FAMILY PRACTICE 04/15/20 07/25/23 [place] [phone] PCP - General FAMILY PRACTICE 07/26/23 Adalid Woo MD [place] [employer] Production Designer CARDIOVASCULAR DISEASE 09/17/18 04/09/24 Connor Correa MD [place] [place] [address] Consulting Physician VASCULAR SURGERY 12/30/20 documented as of this encounter
--- OUTSIDE RECORDS SUMMARY | 2024-09-23 19:28 | XMS_ITS | Referral Summary ---
Author Organization [facility] Address [address] [place] [address] Care Team Providers Care Railway Switchman Name Role Phone Esteban Sands MD Primary Care Provider [phone] Source Comments [facility],non-owned Affiliates and Associated Physician Practices is amultiple site organization consisting of ambulatory clinics and hospital sitesin [place], [place], [place] and [place]. This disclosure is being madepursuant to the Care Everywhere program and may not contain all information available regarding this patient. Last updated 18.[facility] Allergies No known active allergies Medications * Be aware that medications may not be up to date on this document. Alwaysverify current medications with the patient. Medication Sig [...] 02/10/2021 8:46 AM CDT Plan of Treatment Not on file Care Teams Railway Switchman Relationship Specialty Start Date End Date Esteban Sands MD [facility] [address] [place] [address] PCP - General 11/19/20
--- OUTSIDE RECORDS SUMMARY | 2024-09-23 19:28 | XMS_ITS | Encounter Summary ---
Author Organization [facility] Address [address] [place] [address]. [place], [place] [address] [place] [address] Care Team Providers Care Winch Operator Name Role Phone Truman Payne MD Primary Care Provider [phone] Hema Louie MD Unavailable Unavailable Quang Montemayor MD Unavailable Unavailab Adalid Bland MD Unavailable UnavailJoseph Szymanski MD Primary Care Provider [phone] Connor Correa MD Unavailable + [phone] Dino Payne MD Primary Care Provider [phone] Encounter Details Date Type Department Care Team (Late st Contact Info) Description 08/24/2016 Abstract [facility] [address] [place] [phone] Hema Louie MD Social History Tobacco Use Types Packs/Day [...] 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 file Not on file documented as of this encounter Plan of Treatment Not on file documented as of this encounter Procedures Procedure Name Priority Date/Time Associated Diagnosis Comments LIPID PANEL (OUTSIDE LAB) Routine 11/03/2015 CMP (OUTSIDE LAB) Routine 11/03/2015 documented in this encounter Results * LIPID PANEL (OUTSIDE LAB) (11/03/2015) CHOLESTEROL 124 TRIGLYCERIDES 88 HDL 33 LDL (CALCULATED) 73 NON HDL CHOLESTEROL 91 CHOL/HDL RATIO 3.8 11/03/2015 [facility] Abstract LAB-OUTSIDE/ABSTRACTED Final Result * CMP (OUTSIDE LAB) (11/03/2015) SODIUM S/P/B 140 POTASSIUM S/P/B 4.8 CHLORIDE S/P/B 107 CO2 23 BUN 18 CREATININE S/P/B 1.73 EGFR AFR. AMER. 42 EGFR NON-AFR. AMER. 36 CALCIUM S/P/B 9.1 GLUCOSE 100 TOTAL PROTEIN S/P/B 6.9 ALBUMIN S/P/B 4.2 3.5 - 5.0 AST 15 ALT 15 ALKALINE PHOSPHATASE S/P/B 62 BILIRUBIN TOTAL S/P/B 1.7 11/03/2015 us Doc [facility] Abstract LAB-OUTSIDE/ABSTRACTED Final Result documented in this encounter Visit Diagnoses Not on filedocumented in this encounter Care Teams Winch Operator Relationship Specialty Start Date End Date Truman Payne MD [address] [place] [phone] PCP - General FAMILY PRACTICE 07/10/16 04/14/20 Joseph Baltazar MD [address] [place] [address] PCP - General FAMILY PRACTICE 04/15/20 07/25/23 Dino Payne MD [address] [phone] PCP - General FAMILY PRACTICE 07/26/23 Hema Louie MD [address] [place] [address] CARDIOVASCULAR DISEASE 07/10/16 03/12/18 Quang Montemayor MD [address] [place] [address] [employer] [employer] Operations Engineer INTERVENTIONAL CARDIOLOGY 03/13/18 09/16/18 Adalid Woo MD [address] [place] [address] [place] Operations Engineer CARDIOVASCULAR DISEASE 09/17/18 04/09/24 Connor Correa MD [address] [place] [phone] Consulting Physician VASCULAR SURGERY 12/30/20 documented as of this encounter
--- NOTE | 2024-09-23 19:34 | ECG_ITS ---
Test Date: 2024-09-23 19:42:07 Measurements Intervals [place] Rate: 86 P: 0 CT: 0 QRS: -66 QRSD: 108 T: 102 QT: 383 QTc: 459 Interpretive Statements ATRIAL FIBRILLATION WITH ABERRANT CONDUCTION OR VENTRICULAR PREMATURE COMPLEXES LEFT ANTERIOR FASCICULAR BLOCK [QRS AXIS <= -45, QR IN I, RS IN II] MODERATE VOLTAGE CRITERIA FOR LVH, CONSIDER NORMAL VARIANT [MEETS CRITERIA IN ONE OF: R(aVL), S(V1), R(V5), R(V5/V6)+S(V1)] MODERATE T-WAVE ABNORMALITY, CONSIDER LATERAL ISCHEMIA [-0.1+ mV T WAVE IN I/aVL/V5/V6] No previous ECG available for comparison Electronically Signed On 09-24-2024 15:53:24 SECTION HAND HELPER by Brandan Gregg M.D.
[2024-09-24 00:01] LABS: INR 4.6; Prothrombin Time 43.9 Seconds (11.1-14.7)
[2024-09-24 00:03] LABS: Alanine Aminotransferase 43 U/L (6-50); Albumin Level 3.6 g/dL (3.5-5.1); Alkaline Phosphatase 97 U/L (38-126); Anion Gap 11 mmol/L (4-12); Aspartate Amino Transferase 36 U/L (17-59); Basophils Percent Auto 0.4 % (0.2-1.2); Bilirubin,Total 2.3 mg/dL (0.2-1.3); Blood Urea Nitrogen 98 mg/dL (9-20); Calcium 8.7 mg/dL (8.4-10.2); Carbon Dioxide 26 mmol/L (22-30); Chloride 99 mmol/L (98-107); Eosinophils Absolute Auto 0.1 K/mm3 (0-0.3); Eosinophils Percent Auto 1.3 % (0-4.4); Estimated CRCL calculation 12 ml/min; Estimated Glomerular Filt Rate 15; Glucose 102 mg/dL (65-110); Hematocrit 38.3 % (42.0-52.0); Hemoglobin 12.9 g/dL (14.0-18.0); Immature Granulocyte Percent A 1.9 % (0-0.5); Lymphocytes Absolute Auto 0.46 K/mm3 (0.9-3.2); Lymphocytes Percent Auto 8.6 % (18.3-44.2); Mean Corpuscular HGB Conc 33.7 g/dl (32-36); Mean Corpuscular Volume 101.1 fl (80-100); Mean Platelet Volume 10.1 fl (7.4-10.4); Monocytes Absolute Auto 0.8 K/mm3 (0.1-0.6); Monocytes Percent Auto 14.5 % (2.6-8.5); Neutrophils Absolute Auto 3.9 K/mm3 (1.3-6.7); Neutrophils Percent Auto 73.3 % (45.5-73.1); Partial Thromboplastin Time 47.3 Seconds (22.3-36.8); Platelet Count Result 149 k/mm3 (150-375); Potassium 3.7 mmol/L (3.4-5.0); Red Blood Count 3.79 M/mm3 (4.6-6.20); Red Cell Distribution Width 13.6 % (11.5-14.5); Sodium 136 mmol/L (137-145); White Blood Count 5.3 K/mm3 (4.5-10.0)
[2024-09-24 00:24] LABS: Influenza A QL RT-PCR Negative (Negative); Influenza B QL RT-PCR Negative (Negative); RSV RNA, RT-PCR Negative (Negative); SARS-CoV-2 RNA PCR Negative (Negative)
[2024-09-24 00:27] LABS: NT Pro B Type Natriuretic Pept 5980 pg/mL (19.9-100)
[2024-09-24 00:46] VITALS: BP 145/82; PULSE 85; RESP 15; O2SAT 96
[2024-09-24 00:47] VITALS: O2SAT 96
--- OUTSIDE RECORDS SUMMARY | 2024-09-24 01:08 | XMS_ITS | Clinical Summary ---
Author Organization [facility] Address [address] [facility] [address] Care Team Providers Care Annual Campaign Manager Name Role Phone Esteban Sands MD Primary Care Provider [phone] Source Comments [facility],non-owned Affiliates and Associated Physician Practices is amultiple site organization consisting of ambulatory clinics and hospital sitesin [place], [place], [place] and [place]. This disclosure is being madepursuant to the Care Everywhere program and may not contain all information available regarding this patient. Last updated 18.[facility] Allergies No known active allergies Medications * [...] age to complete this topic Care Teams Annual Campaign Manager Relationship Specialty Start Date End Date Esteban Sands MD [address] [place] [address] [address] [place] [address] PCP - General 11/19/20
--- OUTSIDE RECORDS SUMMARY | 2024-09-24 01:08 | XMS_ITS | Referral Summary ---
Author Organization [facility] Address [address] [facility] [place] [address] Care Team Providers Care Public Health Technician Name Role Phone Esteban Sands MD Primary Care Provider [phone] Source Comments [facility],non-owned Affiliates and Associated Physician Practices is amultiple site organization consisting of ambulatory clinics and hospital sitesin [place], [place], [place] and [place]. This disclosure is being madepursuant to the Care Everywhere program and may not contain all information available regarding this patient. Last updated 18.[facility] Allergies No known active allergies Medications * [...] of Treatment Not on file Care Teams Public Health Technician Relationship Specialty Start Date End Date Esteban Sands MD [facility] [address] [place] [address] PCP - General 11/19/20
--- OUTSIDE RECORDS SUMMARY | 2024-09-24 01:09 | XMS_ITS | Encounter Summary ---
Author Organization [facility] Address [address] [place] [address]. [place], [place] [address] [place] [address] Care Team Providers Care Shipping Inspector Name Role Phone Truman Payne MD Primary Care Provider [phone] Hema Louie MD Unavailable Unavailable Quang Montemayor MD Unavailable Unavailab Adalid Bland MD Unavailable UnavailJoseph Szymanski MD Primary Care Provider [phone] Connor Correa MD Unavailable + [phone] Dino Payne MD Primary Care Provider [phone] Encounter Details Date Type Department Care Team (Late st Contact Info) Description 08/24/2016 [facility] [address] [place] [id number] Hema Louie MD Social History Tobacco Use [...] 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 on file Not [...] on filedocumented in this encounter Care Teams Shipping Inspector Relationship Specialty Start Date End Date Truman Payne MD [address] [place] [phone] PCP - General FAMILY PRACTICE 07/10/16 04/14/20 Joseph Baltazar MD [address] [place] [address] PCP - General FAMILY PRACTICE 04/15/20 07/25/23 Dino Payne MD [address] [phone] PCP - General FAMILY PRACTICE 07/26/23 Hema Louie MD [address] [place] [address] CARDIOVASCULAR DISEASE 07/10/16 03/12/18 Quang Montemayor MD [address] [place] [address] [place] Fryer Operator INTERVENTIONAL CARDIOLOGY 03/13/18 09/16/18 Adalid Woo MD [address] [place] [address] [place] Fryer Operator CARDIOVASCULAR DISEASE 09/17/18 04/09/24 Connor Correa MD [address] [place] [phone] Consulting Physician VASCULAR SURGERY 12/30/20 documented as of this encounter
--- OUTSIDE RECORDS SUMMARY | 2024-09-24 01:09 | XMS_ITS | Patient Health Summary ---
Author Organization [facility] [employer] Address [address] [place] [address] Care Team Providers Care Certified Public Accountant Name Role Phone Esteban Sands MD Primary Care Provider [phone] Note from [facility],non-owned Affiliates and Associated Physician Practices is amultiple site organization consisting of ambulatory clinics and hospital sitesin [place], [place], [place] and [place]. This disclosure is being madepursuant to the Care Everywhere program and may not contain all information available regarding this patient. Last updated 18.[facility] [employer] Allergies No known active allergies Medications * [...] Procedure Note Dexter Contreras MD - 02/10/[address] [address] Hemodialysis Graft Report Pat.Name: JONY JACOME Pat.ID: [id number] .Date: 02/10/2021 Refer.MD: Connor Correa Exam Time: 8:04:00 AM Study Type:Hemodialysis Graft Age: 2 1935,85Y Sex: MALE Sonogrphr: Renée Alcaraz RVT Pat. Stat.:Outpatient ICD - 9: N18.6 CPT - 4: 76694 Reason for Study: AV Fistula Evaluation Procedures: AV Fistula Evaluation Race: 1 Visit ID: [id number] ++++++++++++++++++++++++++++++++++++ SUMMARY: ++++++++++++++++++++++++++++++++++++ The brachio-cephalic arterio-venous fistula [...] - 10.7 x10E9/L 01/05/2021 8:30 AM CDT [facility] WBC Corrected 01/05/2021 8:30 AM CDT [facility] RBC 4.10 3.80 - 5.40 x10E12/L 01/05/2021 8:30 AM CDT [facility] Hemoglobin 14.1 12.0 - 17.6 gm/dL 01/05/2021 8:30 AM CDT [facility] Hematocrit 41.5 35.2 - 51.7 % 01/05/2021 8:30 AM CDT [facility] MCV 101.2(H) 80.7 - 98.3 fl 01/05/2021 8:30 AM CDT [facility] MCH 34.4(H) 26.7 - 34.0 pg 01/05/2021 8:30 AM CDT [facility] MCHC 34.0 30.8 - 35.9 gm/dL 01/05/2021 8:30 AM CDT [facility] Platelet Count 165 153 - 416 x10E9/L 01/05/2021 8:30 AM CDT [facility] RDW-CV 12.4 12.1 - 14.9 % 01/05/2021 8:30 AM CDT [facility] MPV 9.7 9.4 - 12.9 fl 01/05/2021 8:30 AM CDT [facility] Neutrophils % 71.0 44.0 - 73.0 % 01/05/2021 8:30 AM CDT [facility] Lymphocytes % 15.2(L) 20.0 - 43.0 % 01/05/2021 8:30 AM CDT [facility] Monocytes % 11.7 5.0 - 13.0 % 01/05/2021 8:30 AM CDT [facility] Eosinophils % 1.5 0.0 - 6.0 % 01/05/2021 8:30 AM CDT [facility] Basophils % 0.4 0.0 - 2.0 % 01/05/2021 8:30 AM CDT [facility] Immature Granulocytes 0.2 0 - 1 % 01/05/2021 8:30 AM CDT [facility] Neutrophil Absolute 3.84 2.01 - 7.14 x10E9/L 01/05/2021 8:30 AM CDT [facility] Lymphocytes Absolute 0.82(L) 1.07 - 3.94 x10E9/L 01/05/2021 8:30 AM CDT [facility] Monocytes Absolute 0.63 0.26 - 1.07 x10E9/L 01/05/2021 8:30 AM CDT [facility] Eosinophils Absolute 0.08 0 - 0.47 x10E9/L 01/05/2021 8:30 AM CDT [facility] Basophils Absolute 0.02 0 - 0.08 x10E9/L 01/05/2021 8:30 AM T [facility] Immature Granulocytes Absolute 0.01 0.00 - 0.06 x10E9/L 01/05/2021 8:30 AM CDT [facility] nRBC Auto 0 /100 WBC 01/05/2021 8:30 AM T [facility] Blood BLOOD SPECIMEN / Unknown Venipuncture / Unknown 01/05/2021 8:13 AM CDT 01/05/2021 8:20 AM CDT Connor Correa MD LAB - HEMATOLOGY O RDERABLES [facility] [address] [place] [address] * (ABNORMAL) BASIC METABOLIC PANEL (CALCIUM TOTAL) (01/05/2021 8:13 AM CDT) [facility] Signature Glucose 111(H) 70 - 105 mg/dL 01/05/2021 8:42 AM CDT [facility] Sodium 141 136 - 145 mmol/L 01/05/2021 8:42 AM CDT [facility] Potassium 3.5 3.5 - 5.1 mmol/L 01/05/2021 8:42 AM CDT [facility] Chloride 102 98 - 107 mmol/L 01/05/2021 8:42 AM CDT [facility] CO2 26 23 - 31 mmol/L 01/05/2021 8:42 AM CDT [facility] Calcium 9.4 8.4 - 10.4 mg/dL 01/05/2021 8:42 AM CDT [facility] Anion Gap 13 8 - 18 mmol/L 01/05/2021 8:42 AM CDT [facility] Comment:Attention clinician: Reference Range change. BUN 76(H) 8.4 - 25.7 mg/dL 01/05/2021 8:42 AM CDT [facility] Creatinine 3.26(H) 0.72 - 1.25 mg/dL 01/05/2021 8:42 AM CDT [facility] eGFR by MDRD 18 mL/min/1.7 3m2 01/05/2021 8:42 AM CDT [facility] eGFR by MDRD 22 mL/min/1.7 3m2 01/05/2021 8:42 AM CDT [facility] Blood BLOOD SPECIMEN / Unknown Venipuncture / Unknown 01/05/2021 8:13 AM CDT 01/05/2021 8:20 AM CDT Connor Correa MD LAB - CHEMISTRY OR DERABLES [facility] [address] [place] [address] * VAS BILAT MAPPING FOR HEMODIALYSIS (01/03/2021 2:32 PM CDT) Anatomical Region Laterality Modality Lower Extremity, Upper Extremity Intravascular Ultrasound 01/03/2021 1:03 PM CDT Narrative Procedure Note Avtar Laboy MD - 01/05/2021 Connor Correa MD VASCULAR LAB ORDER PHANI Care Teams Certified Public Accountant Relationship Specialty Start Date End Date Esteban Sands MD [address] [place], [place] [address] [place] [address] PCP - General 11/19/20
--- OUTSIDE RECORDS SUMMARY | 2024-09-24 01:09 | XMS_ITS | Encounter Summary ---
Author Organization [facility] Address [address] [place] [address]. [place] [address] [place] [address] Care Team Providers Care Emergency Medical Technician Basic Name Role Phone Truman Payne MD Primary Care Provider [phone] Adalid Woo MD Unavailable [facility] Joseph Baltazar MD Primary Care Provider [phone] Connor Correa MD Unavailable [phone] Dino Payne MD Primary Care Provider [phone] Encounter Details Date Type Department Care Team (Late st Contact Info) Description 11/13/2018 Abstract [facility] [address] [place] [address] Abstract, Doc [facility] Social History Tobacco Use [...] 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 Not on file Not on file documented as of this encounter Plan of Treatment Not on file documented as of this encounter Visit Diagnoses Not on filedocumented in this encounter Care Teams Emergency Medical Technician Basic Relationship Specialty Start Date End Date [place] [address] PCP - General FAMILY PRACTICE 07/10/16 04/14/20 Joseph Baltazar MD [address] [place] [address] [place] [address] PCP - General [facility] PRACTICE 04/15/20 07/25/23 [place] [address] [address] [id number] PCP - General FAMILY PRACTICE 07/26/23 [place] [phone] [place] Robot Designer CARDIOVASCULAR DISEASE 09/17/18 04/09/24 Connor Correa MD [address] [address] Consulting Physician VASCULAR SURGERY 12/30/20 documented as of this encounter
--- OUTSIDE RECORDS SUMMARY | 2024-09-24 01:09 | XMS_ITS | Encounter Summary ---
Author Organization [facility] Address [address] [place] [address]. 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
--- OUTSIDE RECORDS SUMMARY | 2024-09-24 01:09 | XMS_ITS | Encounter Summary ---
Author Organization [facility] Address [address] [place] [address]. [place] [address] [place] [address] Care Team Providers Care Sales Representative Wire Rope Name Role Phone Truman Payne MD Primary Care Provider [phone] Hema Louie MD Unavailable Unavailable Quang Montemayor MD Unavailable Unavailab Adalid Bland MD Unavailable UnavailJoseph Szymanski MD Primary Care Provider [phone] Connor Correa MD Unavailable + [phone] Dino Payne MD Primary Care Provider [phone] Encounter Details Date Type Department Care Team (Late st Contact Info) Description 08/12/2015 Abstract [facility] [address] [place] [address] Dante Verma MD [address] [place] [address] Social History Tobacco Use Types [...] 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 file Not on file documented as of this encounter Plan of Treatment Not on file documented as of this encounter Visit Diagnoses Not on filedocumented in this encounter Care Teams Sales Representative Wire Rope Relationship Specialty Start Date End Date Truman Payne MD [address] [place] [address] PCP - General FAMILY PRACTICE 07/10/16 04/14/20 [place] [address] [place] [address] PCP - [facility] PRACTICE 04/15/20 07/25/23 [place] [address] PCP - [facility] PRACTICE 07/26/23 [place] [phone] CARDIOVASCULAR DISEASE 07/10/16 03/12/18 [place] [address] [employer] Teacher INTERVENTIONAL CARDIOLOGY 03/13/18 09/16/18 [place] [address] [employer] Teacher CARDIOVASCULAR DISEASE 09/17/18 04/09/24 [place] [address] Consulting Physician VASCULAR SURGERY 12/30/20 documented as of this encounter
--- OUTSIDE RECORDS SUMMARY | 2024-09-24 01:09 | XMS_ITS | Clinical Summary ---
Author Organization [facility] Address [address] [place] [address]. [place] [address] [place] [address] Care Team Providers Care Beam Sealer Name Role Phone Connor Correa MD Unavailable [phone] Dino Payne MD Primary Care Provider [phone] Allergies No known active allergies Medications chlorthalidone [...] unspecified stage 09/02/2023 Atrial flutter, unspecified type ([facility]) 03/28/2021 Atrial fibrillation ([facility]) 03/08/2021 PFO (patent foramen ovale) ([facility]) 11/01/2019 Onychomycosis 01/10/2018 Class 1 obesity with body ma ss index (BMI) of 30.0 to 30.9 in adult 07/31/2017 Pure hypercholesterolemia 07/31/2017 Thoracic aortic aneurysm without rupture 017 Nonrheumatic aortic valve insufficiency 08/11/20 16 Essential hypertension 08/11/2016 Transient cerebral ischemic attack, unspecified 08/11/2016 Atrial septal defect ([facility]) 08/11/2016 HLD (hyperlipidemia) Resolved Problems Problem [...] 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 file Not on file Last Filed Vital Signs Vital Sign Reading Time Taken Comments Blood Pressure 144/72 07/25/2023 3:00 PM SCRUB WHEEL OPERATOR Pulse 80 07/25/2023 3:00 PM SCRUB WHEEL OPERATOR Temperature 36.3 ??C (97.4 ??F) 01/29/2020 2:33 PM CD T Respiratory Rate 18 07/25/2023 3:00 PM SCRUB WHEEL OPERATOR Oxygen Saturation 99% 07/25/2023 3:00 PM SCRUB WHEEL OPERATOR Inhaled Oxygen Concentration - - Weight 88.5 kg (195 lb) 07/25/2023 3:00 PM SCRUB WHEEL OPERATOR Height 179.1 cm (5' 10.5 ) 07/25/2023 3:00 PM CS T Body Mass Index 27.58 07/25/2023 3:00 PM SCRUB WHEEL OPERATOR Plan of Treatment Health Maintenance Due Date [...] Health Maintenance Insurance MEDICARE [employer] Care Teams Beam Sealer Relationship Specialty Start Date End Date Dino Payne MD [address] [facility] [address] [place] [address] PCP - General FAMILY PRACTICE 07/26/23 Connor Correa MD Consulting Physician VASCULAR SURGERY 12/30/20
--- OUTSIDE RECORDS SUMMARY | 2024-09-24 01:09 | XMS_ITS | Encounter Summary ---
Author Organization [facility] Address [address] [place] [address]. 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
--- OUTSIDE RECORDS SUMMARY | 2024-09-24 01:09 | XMS_ITS | Clinical Summary ---
Author Organization [facility] Address [address], [place] [address] Phone Care Team Providers Care Glass Calibrator Name Role Phone Giovanny Joseph Primary Care Provider [phone] Allergies No known active allergies Medications Medication [...] Vaccine (#1) 2024 05/31/2022, 2020 Care Teams Glass Calibrator Relationship Specialty Start Date End Date Joseph Baltazar PCP - General Family Medicine 12/30/20
[2024-09-24 01:49] LABS: Troponin I 0.154 ng/mL (0.000-0.034)
[2024-09-24 02:02] VITALS: BP 158/90; PULSE 81; RESP 15; O2SAT 96
--- NOTE | 2024-09-24 02:02 | ED.SOB ---
HPI - SOB/Dyspnea General Chief Complaint: Shortness of Breath/Dyspnea Stated Complaint: sob Time Seen by Provider: 09/24/24 00:40 History of Present Illness HPI Narrative: 88-year-old pleasant male with a past medical history including chronic kidney disease stage 4, CHF, hypertension, hyperlipidemia, atrial fibrillation on Xarelto. Today patient presents to the emergency department accompanied by his durable power of food service worker for concerns of increased difficulty in breathing on exertion. Patient has a longstanding history of chronic kidney disease and CHF and previous had thoracentesis for significant pleural effusions. He had a fistula placed in his left upper extremity several years ago but has never been initiated on dialysis. He is denying any chest pain, shortness a breath at rest, chest pain with exertion, nausea, vomiting, abdominal pain, back pain, fever, chills. He has not seen his director social or appointment specialist for this recently. Has been taking his diuretic medications including Bumex and has not missed any dosages. He was otherwise in his normal state of health. No recent hospital visits or hospitalizations. Related Data Home Medications ?Medication ?Instructions ?Recorded ?Confirmed ?Last Taken ?Type rivaroxaban 20 mg tablet (Xarelto) 20 mg PO DAILY 10/16/22 08/20/24 Unknown History temazepam 7.5 mg capsule 7.5 mg PO QHS 10/16/22 08/20/24 Unknown History vitamin E (dl, acetate) 180 mg 180 mg PO DAILY 10/16/22 08/20/24 Unknown History (400 unit) capsule timolol 0.5 % eye drops 1 drp EACH EYE Q12H 06/12/23 08/20/24 Unknown History ascorbic acid (vitamin C) 500 mg 500 mg PO DAILY 12/24/23 08/20/24 Unknown History tablet (Vitamin C) calcium 600 mg capsule 600 mg PO DAILY 12/24/23 08/20/24 Unknown History cholecalciferol (vitamin D3) 125 125 mcg PO DAILY 12/24/23 08/20/24 Unknown History mcg (5,000 unit) tablet (Vitamin D3) travoprost 0.004 % eye drops 1 drp EACH EYE HS 12/24/23 08/20/24 Unknown History clonidine HCl 0.1 mg tablet 0.2 mg PO Q6H 04/09/24 08/20/24 Unknown History Allergies Allergy/AdvReac Type Severity Reaction Status Date / Time No Known Allergies Allergy Verified 09/23/24 19:33 Review of Systems Review of Systems: As reviewed above in [facility] Past Medical History Medical History Bilateral pleural effusion Hyperlipidemia Chronic anticoagulation Paroxysmal atrial fibrillation Hypertension Patent foramen ovale Transient ischemic attack (2020) Echocardiogram showed evidence of a small patent foramen ovale. Chronic kidney disease, stage 4 (severe) Surgical History Surgical History History of cholecystectomy Family History Family History Mother Brain tumor Father Lung cancer Social History Social History Social History: Healthcare power of food service worker: Avtar Finn. Code status: Full code. Smoking status: Never smoker Alcohol intake: never Substance use: never Do You Feel Safe in your Home?: Yes Lack of Transportation: No Lack of Food: Never True Current Housing: I Have Housing Concerned About Future Housing: Decline to Answer Difficulty Paying Gas/Electric Bills: Decline to Answer Difficulty Paying for Meds: Decline to Answer Currently Unemployed: Decline to Answer Education: Master's Degree or Higher Difficulty w/ Childcare or Family Care: No Additional living arrangements comments: Lives in [place]. 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 Gender identity (if verbalized by the patient): Male Spiritual care concerns: No Exam Narrative: GENERAL: [Well-appearing, well-nourished, and in no acute distress.] HEAD: [Normocephalic, atraumatic.] EYES: [PERRLA and EOMI.] ENT: Nares clear, no rhinorrhea or epistaxis. Mucous membranes moist. NECK: Supple. CHEST: Clear to auscultation, no tachypnea or respiratory distress, no conversational dyspnea HEART: Regular rate and rhythm. No murmur heard. 2+ bilateral radial pulses, warm extremities ABDOMEN: [Soft, nondistended], [nontender], [No rigidity or guarding] EXTREMITIES: Normal range of motion. [No edema.] Left upper extremity AV fistula with palpable thrill, no overlying skin changes SKIN: Warm, dry, no rash. NEURO: [No focal deficits]. Alert and oriented [x3.] PSYCH: [Normal mood and affect.] Course Vital Signs Vital signs: Vital Signs Temperature 35.8 C L 09/23/24 19:28 Pulse Rate 79 09/23/24 19:28 Respiratory Rate 20 09/23/24 19:28 Blood Pressure 176/71 H 09/23/24 19:28 Pulse Oximetry 100 09/23/24 19:28 Oxygen Delivery Room Air 09/23/24 19:28 Temperature 35.8 C L 09/23/24 19:28 Pulse Rate 85 09/24/24 00:46 Respiratory Rate 15 09/24/24 00:46 Blood Pressure 145/82 H 09/24/24 00:46 Pulse Oximetry 96 09/24/24 00:47 Oxygen Delivery Room Air 09/24/24 00:47 MDM - SOB/Dyspnea MDM Narrative Medical decision making narrative: 88-year-old male with history of chronic kidney disease with a fistula that has not been started on dialysis yet. He also has a history of CHF, atrial fibrillation on Xarelto. Today he presents with increased sensation of breathlessness with exertion. He denies any chest pain at rest or chest pain with exertion. He states he is able to get around having increased sensation of difficulty in breathing when he exerts himself fully. He is denying any fever, chills, cough, nausea, vomiting, back pain, abdominal pain. He is otherwise very well-appearing and not in any acute distress. Slightly hypertensive but not severe range, no tachycardia, tachypnea, fever, hypoxia. Clear breath sounds without any labored breathing, no dyspnea at rest or with conversation. Strong symmetric pulses with warm extremities. No signs of peripheral edema. Left AV fistula that has been placed for several years has not been accessed yet as patient does not wish to start dialysis. Follows up regularly with Nephrology and Cardiology outpatient. Workup ordered in triage prior to my evaluation. Workup shows no leukocytosis, hemoglobin of 12.9, slightly lower than his previous level but has been low like this in the past. Normal platelets. Electrolytes largely unremarkable, BUN is now 98 from his previous level 86, creatinine at 3.82. Consistent with his CKD, likely approaching end-stage/needing dialysis. His BNP is also mildly elevated at 5980, troponin elevated at 0.154. On review of the EMR patient has had chronic troponin elevations in chronic BNP elevations in previous levels and these are not severely deranged. Chest x-ray shows small bilateral pleural effusions, atelectasis at the bases, cardiomegaly but no pneumothorax or evidence of a pneumonia. Chronic appearing T12 burst fracture also noted by Radiology. EKG was interpreted without any signs of acute ischemia. No ST segment elevations or depressions. Similar in appearance to his previous EKG in January 17 Patient was re-evaluated frequently and still asymptomatic while sitting in his stretcher. Remains hemodynamically stable without any vital sign concerns or hypoxia. We went over patient's workup together with him and the power of food service worker at bedside. Discussed next steps and my concerns that given his disease progression and increased shortness of breath now on exertion that he might be needing dialysis soon although no emergent indications at this time. Patient became seemingly offended at this as he is adamant that he does not want to start dialysis and wants to put this off as long as possible. I informed the patient that his symptomatology could be explained by his kidney disease functionality in addition to his congestive heart failure and that they could explain his lab findings. Patient did not want to entertain the possibility of needing dialysis and wished to be discharged. I went over admission with the patient for further evaluation and treatment, but they prefer to go home. After shared decision-making was had with the patient and the durable power of food service worker at bedside ultimately patient will be discharged home with close outpatient follow-up and they were instructed to call 1st thing in the morning to arrange appointments with his specialists and also given very strict return precautions to return to the ED with any signs of worsening shortness of breath, developing any chest pain, nauseousness vomiting abdominal pain or back pain or any other concerning features. They verbalized understanding these instructions and discharged. Medical Records Attestation: I reviewed the patient's medical records. Lab Data Attestation: I reviewed the patient's lab results. 09/23/24 23:41 09/23/24 23:41 Labs: Lab Results 09/23/24 Range/Units 23:41 WBC 5.3 (4.5-10.0) K/mm3 RBC 3.79 L (4.6-6.20) M/mm3 Hgb 12.9 L (14.0-18.0) g/dL Hct 38.3 L (42.0-52.0) % MCV 101.1 H (80-100) fl MCH 34.0 (26-34) pg MCHC 33.7 (32-36) g/dl RDW 13.6 (11.5-14.5) % Plt Count 149 L (150-375) k/mm3 MPV 10.1 (7.4-10.4) fl Immature Gran % (Auto) 1.9 H (0-0.5) % Neut % (Auto) 73.3 H (45.5-73.1) % Lymph % (Auto) 8.6 L (18.3-44.2) % [place] % (Auto) 14.5 H (2.6-8.5) % Eos % (Auto) 1.3 (0-4.4) % Baso % (Auto) 0.4 (0.2-1.2) % Lymph # (Auto) 0.46 L (0.9-3.2) K/mm3 [place]on # (Auto) 0.8 H (0.1-0.6) K/mm3 Eos # (Auto) 0.1 (0-0.3) K/mm3 Baso # (Auto) 0.0 (0.0-0.1) K/mm3 Abs Immat Gran (auto) 0.10 H (0.00-0.031) K/mm3 Absolute Neuts (auto) 3.9 (1.3-6.7) K/mm3 Absolute Nucleated RBC 0.000 (0.0-0.012) K/mm3 Nucleated RBC % 0.0 (0.0-0.2) % PT 43.9 H (11.1-14.7) Seconds INR 4.6 APTT 47.3 H (22.3-36.8) Seconds Sodium 136 L (137-145) mmol/L Potassium 3.7 (3.4-5.0) mmol/L Chloride 99 (98-107) mmol/L Carbon Dioxide 26 (22-30) mmol/L Anion Gap 11 (4-12) mmol/L BUN 98 H D (9-20) mg/dL Creatinine 3.82 H (0.7-1.3) mg/dL Estim Creat Clear Calc 12 ml/min Estimated GFR 15 L (59 - ) Glucose 102 (65-110) mg/dL Calcium 8.7 (8.4-10.2) mg/dL Total Bilirubin 2.3 H (0.2-1.3) mg/dL AST 36 (17-59) U/L ALT 43 (6-50) U/L Alkaline Phosphatase 97 (38-126) U/L Troponin I 0.154 H* (0.000-0.034) ng/mL NT-Pro-B Natriuret Pep 5980 H (19.9-100) pg/mL Total Protein 7.0 (6.3-8.2) g/dL Albumin 3.6 (3.5-5.1) g/dL Influenza A (RT-PCR) Negative (Negative) Influenza B (RT-PCR) Negative (Negative) RSV (RT-PCR) Negative (Negative) SARS-CoV-2 RNA (RT-PCR) Negative (Negative) Imaging Data Attestation: I personally reviewed and interpreted this imaging study as follows: My impression: Impressions Chest X-Ray 09/23/24 21:31 IMPRESSION: 1. Small pleural effusions. 2. Airspace opacities at the lung bases, likely atelectasis. 3. Cardiomegaly. Discharge Plan Discharge Clinical Impression: Chronic kidney disease, stage 4 (severe), Dyspnea on exertion, Chronic dyspnea Patient Disposition: Home, Self-Care Condition: Stable Instructions: Antibiotic Form, Dyspnea (ED), Low-Sodium Diet (ED), End Stage Kidney Disease (ED) Additional Instructions: If you experience any worsening difficulty with breathing, developing any kind of chest discomfort, back pain, abdominal pain, nauseousness or any other concerns please return for repeat evaluation at that time. Please call your director social anything appointment specialist for evaluation on outpatient basis on a short-term scale if possible. Return with any concerns at any time. Patient Language: Kyrgyz Prescriptions: No Action vitamin E (dl, acetate) 180 mg (400 unit) capsule 180 mg PO DAILY temazepam 7.5 mg capsule 7.5 mg PO QHS Xarelto 20 mg tablet 20 mg PO DAILY Rx Instructions: must administer with evening meal bumetanide 1 mg tablet 2 mg PO DAILY Qty: 60 8RF timolol 0.5 % drops 1 drp EACH EYE Q12H calcium 600 mg Capsule 600 mg PO DAILY travoprost 0.004 % drops 1 drp EACH EYE HS ascorbic acid (vitamin C) [Vitamin C] 500 mg Tablet 500 mg PO DAILY cholecalciferol (vitamin D3) [Vitamin D3] 125 mcg (5,000 unit) Tablet 125 mcg PO DAILY clonidine HCl 0.1 mg tablet 0.2 mg PO Q6H pravastatin 20 mg tablet 20 mg PO DAILY Qty: 90 3RF Follow-up/Referrals: Shadi,Anna Wilson APRN [Primary Care Provider] - Time of Disposition: 01:37
== END 2024-09-24 02:04 | disposition home or self-care (01) ==
PROVIDERS: Registered Nurse; Emergency Provider Student in an Organized Health Care Education/Training Program; PCP Nurse Practitioner
DX: R06.00 Dyspnea, unspecified (principal); I12.9 Hypertensive chronic kidney disease with stage 1 through stage 4 chronic kidney disease, or unspecified chronic kidney disease; N18.4 Chronic kidney disease, stage 4 (severe); I48.91 Unspecified atrial fibrillation; Z79.01 Long term (current) use of anticoagulants; E78.5 Hyperlipidemia, unspecified; Z86.73 Personal history of transient ischemic attack (TIA), and cerebral infarction without residual deficits
CPT/HCPCS: 36415; 71046; 80053; 83880; 84484; 85025; 85610; 85730; 87637; 93005; 99284